=== PATIENT | male | born 1940 | race Caucasian/White ===

== ENCOUNTER 2021-12-27 01:27 | Outpatient (CLI) | payer MEDICARE, SELFPAY | END 2021-12-27 01:28 | disposition home or self-care (01) | LOC: AMB 01-07 11:17 | PROVIDERS: PCP Family Medicine; Visit Provider Family Medicine | DX: E11.649 Type 2 diabetes mellitus with hypoglycemia without coma (principal); R41.82 Altered mental status, unspecified | CPT/HCPCS: A0998 ==

== ENCOUNTER 2022-01-05 14:12 | Outpatient (CLI) | payer MEDICARE, SELFPAY | END 2022-01-05 14:13 | disposition home or self-care (01) | LOC: AMB 01-30 10:44 | PROVIDERS: PCP Family Medicine; Visit Provider Family Medicine | DX: M25.562 Pain in left knee (principal) | CPT/HCPCS: A0425; A0427 ==

== ENCOUNTER 2022-01-05 15:01 | Emergency (ER) | payer MEDICARE, SELFPAY ==
[2022-01-05 15:06] VITALS: BP 149/82; PULSE 63; RESP 18; TEMP 36.4; O2SAT 98; BMI 38.0
--- NOTE | 2022-01-05 15:24 | ED_ITS ---
HPI - General Adult General Chief complaint: Extremity Pain/Injury, Lower Stated complaint: knee pain Time Seen by Provider: 01/05/22 15:10 History of Present Illness HPI narrative: Dontrell is an 81yo male patient who presents via EMS with complaints of severe left knee pain. The patient was recently evaluated and treated by Dr Hwang for similar complaint and offered a steroid injection with notes stating patient is a poor surgical risk. The patient has known history of poorly controlled diabetes (with poor understanding of insulin use) which has resulted in EMS visits for hypoglycemia. In addition, the patient has known history of COPD, HTN, CKD, and CAD. The patient states he has had no acute injury or trauma, but the pain is so severe, he'd 'rather than live with it'. The patient reports the pain is worse when flexing the knee, weight-bearing, or sitting at rest with the knee flexed. He reports minimal to no discomfort while lying supine with knee extended. The patient states he has had no explanation of alternatives of care to surgery. He does not understand why he is a poor surgical risk, and states he will be unable to live with this pain for the rest of his life. He states he is unable to ambulate without assistance. He requested admission for surgical evaluation of his chronic knee pain. Prior to arrival, he has taken no additional [id number] medications for pain control. Related Data Home Medications Medication Instructions Recorded Confirmed aspirin 81 mg tablet,delayed 81 mg PO QDAY 12/21/21 12/25/21 release chlorthalidone 25 mg tablet 25 mg PO QDAY 12/21/21 12/25/21 cholecalciferol (vitamin D3) 25 25 mcg PO QDAY 12/21/21 12/25/21 mcg (1,000 unit) capsule (Vitamin D3) gabapentin 300 mg capsule 300 mg PO 12/21/21 12/25/21 insulin lispro protamine-lispro 20 unit subcut QDAY 12/21/21 12/25/21 100 unit/mL (50-50) subcutaneous pen lisinopril 40 mg tablet 40 mg PO QDAY 12/21/21 12/25/21 metoprolol succinate 25 mg tab PO 12/21/21 12/25/21 tablet,extended release 24 hr rosuvastatin 40 mg tablet 40 mg PO QDAY 12/21/21 12/25/21 tamsulosin 0.4 mg capsule cap PO 12/21/21 12/25/21 insulin aspart U-100 100 unit/mL 1 sliding scale dose subcut 12/25/21 12/25/21 subcutaneous solution (Novolog USEASDIRECTD U-100 Insulin aspart) Previous Rx's Medication Instructions Recorded tramadol 100 mg tablet 100 mg PO TID PRN pain #12 tabs 01/05/22 Allergies Allergy/AdvReac Type Severity Reaction Status Date / Time nifedipine AdvReac feet Verified 12/25/21 08:34 swelling calcium channel blockers AdvReac feet Uncoded 12/25/21 08:34 swelling Review of Systems Const: Denies: fever, chills, fatigue or malaise Eyes: Denies: change in vision or blurry vision ENMT: Denies: throat pain or ear pain Cardio: Denies: chest pain, palpitations or shortness of breath with exertion Resp: Denies: shortness of breath, cough, wheezing or pain on inspiration GI: Denies: abdominal pain, nausea, vomiting, diarrhea or constipation : Denies: painful urination, urinary frequency or urinary urgency Musculo: Reports: extremity pain, extremity swelling, joint pain and limited range of motion; Denies: back pain Integ/Breast: Denies: rash Neuro: Denies: headache, numbness in extremities, weakness in extremities or dizziness Psych: Reports: anxiety (regarding health); Denies: mood swings Endo: Denies: fatigue Allergy/Immuno: Denies: wheezing PFSH PFSH Medical History BPH (benign prostatic hyperplasia) Colon polyp Impairment of balance Right rotator cuff tear Stroke Surgical History History of arthroscopy of right knee (02/17/01) History of lumbar laminectomy S/P medial meniscectomy of right knee (01/27/07) S/P TURP (status post transurethral resection of prostate) Family History Mother Heart problem Hyperlipidemia Father Heart problem Other Diabetes Social History Smoking Status: Former smoker How often do you have a drink containing alcohol: never AUDIT-C Alcohol total score: 0 Non-prescribed substance use: denies use Exam Const: Vital Signs, click to edit/add: Vital Signs - 24 hr 01/05/22 15:06 Temperature 97.6 F Pulse Rate [Right Pulse Oximeter] 63 Respiratory Rate 18 Blood Pressure [Ri ght Upper Arm] 149/82 H Pulse Oximetry 98 Oxygen Delivery Me thod Room Air Documenting provider has reviewed patient's vital signs: yes Common normals: no apparent distress, oriented x3, no limitations, alert and well nourished General appearance: cooperative, comfortable and well developed; not in distress Nutritional appearance: obese morbidly obese Orientation/consciousness: Yes awake, Yes oriented to person and Yes oriented to place HENMT: Common normals: normocephalic, head/scalp atraumatic and hearing grossly normal bilaterally Head and scalp: normocephalic and atraumatic Face and sinus: normal facial exam (within limits of masking) Eye: Common normals: EOMs intact bilaterally General eye: normal appearance of both eyes Resp: Common normals: normal respiratory effort, no retractions, no use of accessory muscles and clear to auscultation bilaterally Effort & inspection: able to speak in complete sentences Auscultation: clear to auscultation bilaterally Cardio: Common normals: regular rate, regular rhythm, S1 normal heart sound and S2 normal heart sound Rate: regular rate Rhythm: regular rhythm Heart sounds: S1 normal and S2 normal Extremity: General: normal exam except as noted and edema (LLE/knee; but no induration, warmth, or erythema; NT to palpation) Neuro: Common normals: oriented x3, moves all extremities (with pain noted in flexion of LLE), no focal motor deficits and no sensory deficits noted Se nsorium/orientation: awake, alert, oriented to person and oriented to place Gait (neuro): assistive device used walker Motor exam: no movement abnormalities noted Psych: Common normals: mental status grossly normal, thought process normal and activity/motor behavior normal Appearance: grossly normal Thought process: normal thought process Thought content: normal thought content Attention/concentration: attention grossly intact Memory/cognition: memory grossly intact Insight: limited Judgement: fair Skin: Common normals: no rashes or lesions noted General skin exam: no rashes or lesions noted Course Course Hospital Course: Dontrell presented for evaluation of chronic left knee pain that has been evaluated and treated by his primary orthopedic physician. Records were reviewed. He requested admission to hospital for consideration of potential surgical evaluation and treatment for his chronic pain. He requests MRI on Friday evening, stating we are unable to confirm 'if there is a tear in the knee'. He denies acute injury or trauma, but he states he is unable to live with the pain. Reevaluation(s) Reevaluation #1: Patient is advised of normal, for patient, lab values. Without acute injury or trauma, repeating the XR would not be beneficial or cost effective for the patient. The patient is advised we are not able to confirm soft tissue complaint in the knee without MRI, but we are unable to perform that function due to access on this day/at this time. The patient is advised, typically for chronic conditions, MRIs are ordered through the outpatient physician after a preauthorization with the insurance company. The patient becomes somewhat defensive stating that this will take weeks to months, and he will be unable to survive this level of pain. Alternatives for pain management are discussed with the patient. After which, he becomes more agreeable and is willing to consider conservative therapy with outpatient follow-up. Orders for medication and knee brace are placed. The patient has multiple walkers at home for his use. Time: 17:00 Reevaluation #2: Patient reports improvement in symptoms. Patient's vital signs have remained stable. The results were discussed, and the patient verbalized understanding. Importance of follow-up for chronic conditions with primary physician discussed. Advised to discuss risk-benefit of surgical correct with orthopedics. Reasons f or follow-up or return to ED were discussed. Time: 17:48 Vital Signs Vital signs: Initial Vital Signs Temperature 97.6 F 01/05/22 15:06 Temperature Source Temporal Artery Scan 01/05/22 15:06 Pulse Rate 63 01/05/22 15:06 Respiratory Rate 18 01/05/22 15:06 Blood Pressure 149/82 H 01/05/22 15:06 Blood Pressure Mean 104 01/05/22 15:06 Blood Pressure Position Sitting 01/05/22 15:06 Pulse Oximetry 98 01/05/22 15:06 Oxygen Delivery Method 01/05/22 15:06 Vital Signs Temperature 97.6 F 01/05/22 15:06 Pulse Rate 63 01/05/22 15:06 Respiratory Rate 18 01/05/22 15:06 Blood Pressure 149/82 H 01/05/22 15:06 Pulse Oximetry 98 01/05/22 15:06 Oxygen Delivery Method 01/05/22 15:06 Temperature 97.6 F 01/05/22 15:06 Pulse Rate 63 01/05/22 15:06 Respiratory Rate 18 01/05/22 15:06 Blood Pressure 149/82 H 01/05/22 15:06 Pulse Oximetry 98 01/05/22 15:06 Oxygen Delivery Method 01/05/22 15:06 Medical Decision Making MDM Narrative Medical decision making narrative: Differential diagnoses considered include: sprain and strain, contusion, nerve root entrapment, radiculopathy, muscle spasm, dislocation, and fracture. Other differentials include ligament or tendon injury/damage, vascular or nerve damage. Lab Data Labs: Lab Results 01/05/22 01/05/22 01/05/22 Range/Units 15:49 15:49 15:49 WBC 8.62 (4.50-11.00) K/uL RBC 4.36 (4.30-5.90) m/uL Hgb 13.4 L (13.5-17.5) gm/dL Hct 41.2 (37.0-53.0) % MCV 95 (80-100) fL MCH 31 (26-34) pg MCHC 33 (32-36) gm/dL RDW Coeff of Sage 12.5 (11.5-15.5) % Plt Count 172 (140-440) K/uL Neut % (Auto) 73.9 H (42.0-72.0) % Lymph % (Auto) 15.7 L (20-44) % [place] % (Auto) 8.2 (0.0-11.0) % Eos % (Auto) 1.5 (0.0-7.0) % Baso % (Auto) 0.5 (0.0-3.0) % Neut # (Auto) 6.40 (1.7-7.0) K/uL Lymph # (Auto) 1.40 (0.90-2.90) K/uL [place] # (Auto) 0.70 (0.00-0.90) K/UL Eos # (Auto) 0.13 (0.00-0.50) K/uL Baso # (Auto) 0.04 (0.00-0.30) K/uL Abs Immat Gran (auto) 0.02 (0.00-0.30) K/uL ESR 32 H (2-15) mm/hr Sodium 136 (135-149) mmol/L Potassium 4.0 (3.6-5.1) mmol/L Chloride 102 (96-114) mmol/L Carbon Dioxide 23 (20-32) mmol/L BUN 40 H (7-30) mg/dL Creatinine 2.2 H (0.5-1.5) mg/dL Estimated Creat Clear 29.26 Estimated GFR 29 ml/min Glucose 254 H (60-115) mg/dL Calcium 8.7 (8.4-10.6) mg/dL Total Bilirubin 0.5 (0.1-1.5) mg/dL AST 35 (12-35) U/L ALT 26 (4-50) U/L Alkaline Phosphatase 130 (40-150) U/L Total Protein 6.5 (6.0-8.3) g/dL Albumin 3.6 (3.3-5.0) g/dL Discharge Plan Discharge Clinical Impression: Morbid obesity, Chronic kidney disease Diabetes Qualifiers: Diabetes mellitus type: type 2 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 use Diabetes mellitus complication status: with kidney complications Diabetes mellitus complication detail: with chronic kidney disease Chronic kidney disease stage: stage 3 (moderate) Chronic kidney disease stage 3 subtype: stage 3b (GFR 30-44) Qualified Code(s): 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 Take NSAIDs (Ibuprofen, Motrin, Advil, or substitute) 600-800mg three times daily for the next three days. Decrease to twice daily for the next two days. Take NSAIDs once daily for 1wk. Take pain medication as prescribed. Your medications will not be refilled in the ED. If you need additional medications, you will need to follow- up with your primary physician for a risk-benefit discussion of long-term pain medication use. Use RICE - rest, ice, compression, and elevation - as needed for symptom control. I recommend following up with your primary physician in 1-2wks if a significant improvement of symptoms is not noted. Continue routine activity as tolerated. Use walker or assistive device to help with ambulation. You may consider topical medications including capsaicin or lidocaine patches to assist with symptom control. If new or worsening symptoms develop or you have any concerns in the meantime, please call your primary care clinic or return to the ER for re-evaluation. Activity Level: Activity as Tolerated Discharge Diet: Diabetic Prescriptions: New tramadol 100 mg tablet 100 mg PO TID PRN (Reason: pain) Qty: 12 0RF No Action insulin lispro protamin-lispro 100 unit/mL (50-50) insulin pen 20 unit subcut QDAY rosuvastatin 40 mg tablet 40 mg PO QDAY lisinopril 40 mg tablet 40 mg PO QDAY gabapentin 300 mg capsule 300 mg PO chlorthalidone 25 mg tablet 25 mg PO QDAY tamsulosin 0.4 mg capsule PO metoprolol succinate 25 mg tablet extended release 24 hr PO aspirin 81 mg tablet,delayed release (DR/EC) 81 mg PO QDAY cholecalciferol (vitamin D3) [Vitamin D3] 25 mcg (1,000 unit) capsule 25 mcg PO QDAY insulin aspart U-100 [Novolog U-100 Insulin aspart] 100 unit/mL solution 1 sliding scale dose subcut USEASDIRECTD Follow Up/Referrals: Bridger Danielson MD [Primary Care Provider] - 7 Days Stand Alone Forms: Relatient Info Instructions
[2022-01-05 15:57] LABS: Basophils Absolute Auto 0.04 K/uL (0.00-0.30); Basophils Percent Auto 0.5 % (0.0-3.0); Eosinophils Absolute Auto 0.13 K/uL (0.00-0.50); Eosinophils Percent Auto 1.5 % (0.0-7.0); Hematocrit 41.2 % (37.0-53.0); Hemoglobin* 13.4 gm/dL (13.5-17.5); Immature Granulocytes Abs Auto 0.02 K/uL (0.00-0.30); Lymphocytes Percent Auto 15.7 % (20-44); Mean Corpuscular HGB Conc 33 gm/dL (32-36); Mean Corpuscular Hemoglobin 31 pg (26-34); Mean Corpuscular Volume 95 fL (80-100); Monocytes Percent Auto 8.2 % (0.0-11.0); Neutrophils Percent Auto 73.9 % (42.0-72.0); Platelet Count* 172 K/uL (140-440); RDW Coefficient of Variation % 12.5 % (11.5-15.5); Red Blood Count 4.36 m/uL (4.30-5.90); White Blood Count* 8.62 K/uL (4.50-11.00)
[2022-01-05 16:00] VITALS: BP 118/74; PULSE 61; O2SAT 91
[2022-01-05 16:01] LABS: Slide Review Reflex No
[2022-01-05 16:18] LABS: Chloride* 102 mmol/L (96-114)
[2022-01-05 16:19] LABS: Albumin* 3.6 g/dL (3.3-5.0); Sodium* 136 mmol/L (135-149)
[2022-01-05 16:21] LABS: Creatinine* 2.2 mg/dL (0.5-1.5); Est. Creatinine Clearance* 29.26; Estimated Glomerular Filt Rate 29 ml/min
[2022-01-05 16:22] LABS: Alanine Aminotransferase* 26 U/L (4-50); Alkaline Phosphatase* 130 U/L (40-150); Aspartate Amino Transferase* 35 U/L (12-35); Bilirubin Total* 0.5 mg/dL (0.1-1.5); Blood Urea Nitrogen* 40 mg/dL (7-30); Carbon Dioxide* 23 mmol/L (20-32); Glucose* 254 mg/dL (60-115); Total Protein* 6.5 g/dL (6.0-8.3)
[2022-01-05 16:23] LABS: Calcium* 8.7 mg/dL (8.4-10.6)
[2022-01-05 16:50] LABS: Erythrocyte SedimentationRate* 32 mm/hr (2-15)
[2022-01-05 17:00] VITALS: BP 133/54; PULSE 56; O2SAT 94
[2022-01-05] MEDS: TRAMADOL HCL 50 MG TABLET 100 MG PO (17:43)
== END 2022-01-05 18:47 | disposition home or self-care (01) ==
PROVIDERS: Emergency Provider Family Medicine; PCP Family Medicine
DX: M17.12 Unilateral primary osteoarthritis, left knee (principal); E11.22 Type 2 diabetes mellitus with diabetic chronic kidney disease; E66.01 Morbid (severe) obesity due to excess calories
CPT/HCPCS: 36415; 80053; 85025; 85651; 99283; 99284; A9270

== ENCOUNTER 2022-01-07 13:24 | Outpatient (CLI) | payer MEDICARE, SELFPAY | END 2022-01-07 13:25 | disposition home or self-care (01) | LOC: AMB 01-10 00:02 | PROVIDERS: PCP Family Medicine; Visit Provider Emergency Medicine Emergency Medical Services | DX: F91.9 Conduct disorder, unspecified (principal) | CPT/HCPCS: A0425; A0427 ==

== ENCOUNTER 2022-01-07 13:49 | Observation (INO) | payer MEDICARE, SELFPAY ==
[2022-01-07] VITALS (9 sets, daily range): BP systolic 99–147; BP diastolic 61–87; PULSE 78–104; RESP 16–20; TEMP 35.7–36.8; O2SAT 94; BMI 37.6; BMI 39.9
--- NOTE | 2022-01-07 14:11 | CRLHL7_ITS ---
For Patients: As a result of the Century Cures Act, medical imaging exams and procedure reports are released immediately into your electronic medical record. You may view this report before your referring provider. If you have questions, please contact your health care provider. INDICATION: abdominal pain, rebound tenderness TECHNIQUE: CT abdomen and pelvis without contrast, COMPARISON: None. FINDINGS: Kidney/ureters: Severe bilateral renal cortical atrophy. No kidney or ureteral stones and no hydronephrosis. No hydronephrosis. Unremarkable appearing bladder. Liver/gallbladder/bile ducts: The liver is normal in size, shape and attenuation. Gallbladder is normal without visualized stones or inflammation. No biliary dilatation. Spleen/pancreas/adrenal glands: The adrenal glands and pancreas are within normal limits. Calcified granulomata within the spleen. GI tract: Small hiatal hernia. 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 Colon diverticulosis without evidence of acute diverticulitis. Moderate fecal retention throughout the colon and rectum.. Normal appendix. Abdominal wall/omentum/peritoneum: No free air or significant free fluid. No mass or inflammation. Lymph nodes: No lymphadenopathy. Pelvis: Prostatomegaly measuring 5.1 x 6.6 cm. Lower chest: Bibasilar subpleural reticulation which may indicate fibrosis. Right basilar calcified granuloma. Bone: Calcified disc osteophyte complex at L5-S1 with moderate spinal canal stenosis. IMPRESSION: No evidence of acute intra-abdominal process. Small hiatal hernia. 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 Colon diverticulosis without evidence of acute diverticulitis. Prostatomegaly. Bibasilar subpleural reticulation which may indicate fibrosis. Calcified disc osteophyte complex at L5-S1 with moderate spinal canal stenosis. Please note that all CT scans at this facility use dose modulation, iterative reconstruction, and/or weight-based dosing when appropriate to reduce radiation dose to as low as reasonably achievable. Dictated by Damian Graham MD @ 01/07/2022 4:25:07 PM (Electronically Signed)
--- NOTE | 2022-01-07 14:11 | CRLHL7_ITS ---
For Patients: As a result of the Century Cures Act, medical imaging exams and procedure reports are released immediately into your electronic medical record. You may view this report before your referring provider. If you have questions, please contact your health care provider. Indication: Injury and pain Technique: Right wrist 3 view Comparison: None Findings: The bones are osteopenic. There is mildly displaced fracture involving the distal radial metaphysis with dorsal angulation. Mildly displaced fracture of the ulnar styloid. There is adjacent soft tissue swelling. Impression: Fractures involving the distal radial metaphysis and ulnar styloid. Dictated by Damian Graham MD @ 01/07/2022 2:50:09 PM (Electronically Signed)
--- NOTE | 2022-01-07 14:13 | ED.GENADULT ---
HPI - General Adult General Chief complaint: Unspecified Complaint, Adult Stated complaint: Knee pain Time Seen by Provider: 01/07/22 13:58 History of Present Illness HPI narrative: This 81-year-old male comes in by ambulance because of inability to ambulate. He has had chronic knee pain that is been worsening significantly recently. He did have x-rays of his knees about 2 weeks ago which showed degenerative disease. He did not fall or injure his knees to bring about this pain. He was seen 2 days ago in the emergency department for knee pain and was sent home with a knee immobilizer. He arrived at home and fell when using his walker. He injured his right wrist and hit his head when he fell. He does not report a headache. He is not on any blood thinners. He does have bruising and swelling of his right wrist and decreased function. For the past 2 days he has been unable to get up to ambulate because these problems. He has been using a urinal and has depends on currently. He does report abdominal pain. Related Data Home Medications Medication Instructions Recorded Confirmed aspirin 81 mg tablet,delayed 81 mg PO DAILY 12/21/21 01/07/22 release chlorthalidone 25 mg tablet 25 mg PO DAILY 12/21/21 01/07/22 cholecalciferol (vitamin D3) 25 50 mcg PO DAILY 12/21/21 01/07/22 mcg (1,000 unit) capsule (Vitamin D3) gabapentin 300 mg capsule 300 mg PO HS 12/21/21 01/07/22 insulin lispro protamine-lispro 40 unit subcut BID 12/21/21 01/07/22 100 unit/mL (50-50) subcutaneous pen lisinopril 40 mg tablet 40 mg PO DAILY 12/21/21 01/07/22 metoprolol succinate 25 mg 25 mg PO DAILY 12/21/21 01/07/22 tablet,extended release 24 hr rosuvastatin 40 mg tablet 40 mg PO HS 12/21/21 01/07/22 tamsulosin 0.4 mg capsule 0.4 mg PO DAILY 12/21/21 01/07/22 insulin aspart U-100 100 unit/mL 20 unit subcut TIDWM 12/25/21 01/07/22 subcutaneous solution (Novolog U-100 Insulin aspart) acetaminophen 500 mg tablet 1,000 mg PO TID 01/07/22 01/07/22 Allergies Allergy/AdvReac Type Severity Reaction Status Date / Time nifedipine AdvReac feet Verified 12/25/21 08:34 swelling calcium channel blockers AdvReac feet Uncoded 12/25/21 08:34 swelling Review of Systems Status of ROS: Reports: 10 or more systems reviewed and unremarkable except as noted in History and below Narrative: Constitutional: No fevers, no weight gain or loss. Eyes: No discharge. No vision changes. HENT: No congestion, no sore throat, no ear pain. Cardiovascular: No chest pain, no palpitations. Respiratory: No shortness of breath, no wheezes, no cough. Gastrointestinal: No vomiting, no diarrhea. Diffuse abdominal pain. Genitourinary: No dysuria, no hematuria. Musculoskeletal: Bilateral knee pain. Right wrist injury with swelling and bruising. Skin: No rashes, no pruritis. Neurological: No dizziness, weakness, sensory change, speech change. Endo/Heme/Allergies: No bruising or bleeding. No polydipsia. Pysch: no suicidality, no anxiety, no insomnia. All other systems reviewed and are negative. [facility] Medical History BPH (benign prostatic hyperplasia) Colon polyp Impairment of balance Right rotator cuff tear Stroke Surgical History History of arthroscopy of right knee (02/17/01) History of lumbar laminectomy S/P medial meniscectomy of right knee (01/27/07) S/P TURP (status post transurethral resection of prostate) Family History Mother Heart problem Hyperlipidemia Father Heart problem Other Diabetes Social History Smoking Status: Former smoker How often do you have a drink containing alcohol: never AUDIT-C Alcohol total score: 0 Non-prescribed substance use: denies use service: No Exam Narrative: Exam Narrative: Constitutional: Well-developed, well-nourished, no acute distress. HEENT: Normocephalic, atraumatic. Neck: Normal range of motion. Nontender. Supple. Heart: Regular. No murmurs. Normal rate. Intact distal pulses. Lungs: Clear to auscultation. No chest discomfort. No wheezes, rhonchi, or rales. Abdomen: Normal bowel sounds. Diffuse tenderness with rebound tenderness. Genitalia: Deferred. Back: No midline tenderness. Normal range of motion. Extremities: Right wrist has swelling and bruising with decreased function and range of motion. Skin: Intact. No rash. Warm. No erythema or pallor. Neurologic: No altered sensation. No weakness. Alert and oriented. Psychiatric: No suicidality. No anxiety or depression. No insomnia. Nursing notes and vitals signs are reviewed. Const: Vital Signs, click to edit/add: Vital Signs - 24 hr 01/07/22 13:52 01/07/22 15:15 01/07/22 14:02 Temperature 96.2 F L Pulse Rate [Left P ulse Oximeter] 99 96 104 H Respiratory Rate 16 16 20 Blood Pressure [Le ft Upper Arm] 99/68 142/78 H Pulse Oximetry 94 94 94 Oxygen Delivery Me thod Room Air Room Air Room Air Course Vital Signs Vital signs: Initial Vital Signs Temperature 96.2 F L 01/07/22 13:52 Temperature Source Temporal Artery Scan 01/07/22 13:52 Pulse Rate 99 01/07/22 13:52 Pulse Rhythm 01/07/22 13:52 Pulse Strength 3+ Normal 01/07/22 13:52 Respiratory Rate 16 01/07/22 13:52 Blood Pressure Position Supine 01/07/22 13:52 Pulse Oximetry 94 01/07/22 13:52 Oxygen Delivery Method 01/07/22 13:52 Vital Signs Temperature 96.2 F L 01/07/22 13:52 Pulse Rate 99 01/07/22 13:52 Respiratory Rate 16 01/07/22 13:52 Pulse Oximetry 94 01/07/22 13:52 Oxygen Delivery Method 01/07/22 13:52 Temperature 96.2 F L 01/07/22 13:52 Pulse Rate 96 01/07/22 15:15 Respiratory Rate 16 01/07/22 15:15 Blood Pressure 99/68 01/07/22 15:15 Pulse Oximetry 94 01/07/22 15:15 Oxygen Delivery Method 01/07/22 15:15 Medical Decision Making MDM Narrative Medical decision making narrative: This patient was sent home after an ER visit a couple days ago. He had no injury at the time but was complaining of severe knee pain. He has had a visit with orthopedic clinic and images were done a couple weeks ago of his knees. He was sent home 2 days ago with a knee immobilizer. When ambulating within immobilizer on and with the use of a walker he lost his balance and fell backwards. He injured his right wrist and states that he did bump his head. He is also complaining of abdominal pain. A CT scan of the abdomen without contrast was done which shows no acute findings to explain his pain. X-ray of the right wrist does show a minimally displaced fracture. The patient was placed in an ortho glass volar splint. I spoke with the hospitalist director selection and administration, Dr. Kinney, who agreed to his admission overnight. He requested a CT scan of his head and C-spine which was ordered and can be completed EN route to the hospital bed. Lab Data Labs: Lab Results 01/07/22 01/07/22 01/07/22 Range/Units 15:10 15:10 15:10 WBC 11.19 H (4.50-11.00) K/uL RBC 4.64 (4.30-5.90) m/uL Hgb 14.4 (13.5-17.5) gm/dL Hct 43.2 (37.0-53.0) % MCV 93 (80-100) fL MCH 31 (26-34) pg MCHC 33 (32-36) gm/dL RDW Coeff of Sage 12.4 (11.5-15.5) % Plt Count 185 (140-440) K/uL Neut % (Auto) 80.6 H (42.0-72.0) % Lymph % (Auto) 9.7 L (20-44) % [place] % (Auto) 8.3 (0.0-11.0) % Eos % (Auto) 0.8 (0.0-7.0) % Baso % (Auto) 0.4 (0.0-3.0) % Neut # (Auto) 9.00 H (1.7-7.0) K/uL Lymph # (Auto) 1.10 (0.90-2.90) K/uL [place] # (Auto) 0.90 (0.00-0.90) K/UL Eos # (Auto) 0.10 (0.00-0.50) K/uL Baso # (Auto) 0.00 (0.00-0.30) K/uL Abs Immat Gran (auto) 0.02 (0.00-0.30) K/uL Sodium 135 (135-149) mmol/L Potassium 4.4 (3.6-5.1) mmol/L Chloride 98 (96-114) mmol/L Carbon Dioxide 25 (20-32) mmol/L BUN 47 H (7-30) mg/dL Creatinine 2.5 H (0.5-1.5) mg/dL Estimated Creat Clear 25.75 Estimated GFR 25 ml/min Glucose 202 H (60-115) mg/dL Calcium 9.7 (8.4-10.6) mg/dL SARS-CoV-2 (PCR) Negative SARS-CoV-2 (Negative) Imaging Data xr R Wrist: Radiologist's impression: The bones are osteopenic. There is mildly displaced fracture involving the distal radial metaphysis with dorsal angulation. Mildly displaced fracture of the ulnar styloid. There is adjacent soft tissue swelling. CT scan - abdomen: Radiologist's impression: No evidence of acute intra-abdominal process. Small hiatal hernia. 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 Colon diverticulosis without evidence of acute diverticulitis. Prostatomegaly. Bibasilar subpleural reticulation which may indicate fibrosis. Calcified disc osteophyte complex at L5-S1 with moderate spinal canal stenosis. Discharge Plan Discharge Clinical Impression: Right wrist fracture, Osteoarthritis of knees, bilateral Patient Disposition: Admitted As Inpatient Prescriptions: No Action insulin lispro protamin-lispro 100 unit/mL (50-50) insulin pen 40 unit subcut BID rosuvastatin 40 mg tablet 40 mg PO HS lisinopril 40 mg tablet 40 mg PO DAILY gabapentin 300 mg capsule 300 mg PO HS chlorthalidone 25 mg tablet 25 mg PO DAILY tamsulosin 0.4 mg capsule 0.4 mg PO DAILY metoprolol succinate 25 mg tablet extended release 24 hr 25 mg PO DAILY aspirin 81 mg tablet,delayed release (DR/EC) 81 mg PO DAILY cholecalciferol (vitamin D3) [Vitamin D3] 25 mcg (1,000 unit) capsule 50 mcg PO DAILY insulin aspart U-100 [Novolog U-100 Insulin aspart] 100 unit/mL solution 20 unit subcut TIDWM acetaminophen 500 mg tablet 1,000 mg PO TID Follow Up/Referrals: Bridger Danielson MD [Primary Care Provider] -
[2022-01-07 15:27] LABS: Basophils Percent Auto 0.4 % (0.0-3.0); Eosinophils Percent Auto 0.8 % (0.0-7.0); Hematocrit 43.2 % (37.0-53.0); Hemoglobin* 14.4 gm/dL (13.5-17.5); Immature Granulocytes Abs Auto 0.02 K/uL (0.00-0.30); Lymphocytes Percent Auto 9.7 % (20-44); Mean Corpuscular HGB Conc 33 gm/dL (32-36); Mean Corpuscular Hemoglobin 31 pg (26-34); Mean Corpuscular Volume 93 fL (80-100); Monocytes Percent Auto 8.3 % (0.0-11.0); Neutrophils Percent Auto 80.6 % (42.0-72.0); Platelet Count* 185 K/uL (140-440); RDW Coefficient of Variation % 12.4 % (11.5-15.5); Red Blood Count 4.64 m/uL (4.30-5.90); White Blood Count* 11.19 K/uL (4.50-11.00)
[2022-01-07 15:31] LABS: Slide Review Reflex No
[2022-01-07 15:41] LABS: Chloride* 98 mmol/L (96-114); Potassium* 4.4 mmol/L (3.6-5.1); Sodium* 135 mmol/L (135-149)
[2022-01-07 15:43] LABS: Creatinine* 2.5 mg/dL (0.5-1.5); Est. Creatinine Clearance* 25.75; Estimated Glomerular Filt Rate 25 ml/min
[2022-01-07 15:44] LABS: Blood Urea Nitrogen* 47 mg/dL (7-30); Calcium* 9.7 mg/dL (8.4-10.6); Carbon Dioxide* 25 mmol/L (20-32); Glucose* 202 mg/dL (60-115)
--- NOTE | 2022-01-07 17:00 | CRLHL7_ITS ---
For Patients: As a result of the Century Cures Act, medical imaging exams and procedure reports are released immediately into your electronic medical record. You may view this report before your referring provider. If you have questions, please contact your health care provider. INDICATION: Fall. TECHNIQUE: CT of the head without contrast. Coronal and sagittal reformats are included. COMPARISON: None. FINDINGS: No acute intracranial hemorrhage. No mass effect or midline shift. No hydrocephalus or extra-axial collections. Scattered white matter hypoattenuation, typical for chronic microvascular ischemic change. Moderate generalized parenchymal volume loss. No acute osseous abnormalities. Mastoid air cells and paranasal sinuses are clear. Normal soft tissues. IMPRESSION: IMPRESSION: 1. No acute intracranial abnormalities. Please note that all CT scans at this facility use dose modulation, iterative reconstruction, and/or weight-based dosing when appropriate to reduce radiation dose to as low as reasonably achievable. Dictated by Markel Ferguson MD @ 01/07/2022 5:50:53 PM (Electronically Signed)
--- NOTE | 2022-01-07 17:00 | CRLHL7_ITS ---
For Patients: As a result of the Cures Act, medical imaging exams and procedure reports are released immediately into your electronic medical record. You may view this report before your referring provider. If you have questions, please contact your health care provider. INDICATION: Fall. TECHNIQUE: CT of the cervical spine without contrast. Coronal and sagittal reformats are included. COMPARISON: None. FINDINGS: No acute fracture or traumatic malalignment of the cervical spine. Craniocervical junction alignment is maintained. Mild degenerative cervical kyphosis. Mild to moderate disc degeneration most prominent at C5-6, C6-7 and C7-T1. Mild anterolisthesis at C3-4 and C4-5. Multilevel uncovertebral/facet arthrosis with mild to moderate bony neural foraminal stenosis at several levels. No high grade spinal canal stenosis as far as visualized. Imaged intracranial structures, cervical and paraspinous soft tissues are normal in appearance. The visualized pulmonary apices are clear. IMPRESSION: 1. No acute fracture or traumatic malalignment of the cervical spine. Please note that all CT scans at this facility use dose modulation, iterative reconstruction, and/or weight-based dosing when appropriate to reduce radiation dose to as low as reasonably achievable. Dictated by Markel Ferguson MD @ 01/07/2022 5:48:30 PM (Electronically Signed)
[2022-01-07 17:06] LABS: SARS PCR* Negative SARS-CoV-2 (Negative)
--- NOTE | 2022-01-07 17:59 | PM.IMHP1 ---
Hospitalist- H&P: HPI History of Present Illness Date Seen: 01/07/22 Chief complaint: Knee pain Narrative: Dontrell Ramirez is a 81 year old male who has progressive nontraumatic pain in his left knee. Pt has been seen by orthopedics and underwent a steroid injection. Pt was seen in the [facility] ED 2 days ago stating that his knee was so painful that he wanted to be admitted. Pt was treated with a knee imobilizer and toradol. Pt was discharged home and was getting around with the knee imobilizer and a walker when he fell and injured his right wrist and posterior aspect of his head. CT of the head and neck showed no acute abnormalities and x ray of the right wrist showed a fracture of the radial metaphysis and ulnar styloid. The wrist was spinted. Pt's CBC remains unremarkable. He does have a blood sugar of 202 and slight worsening of his chronic renal insufficiency with BUN of 47 and Cr 2.5. Pt otherwise feels well and has no other complaints. No palpatations or other cardiovascular symptoms. Review of Systems Status of ROS: Reports: 10 or more systems reviewed and unremarkable except as noted in History and below [facility] Medical History (Updated 01/07/22 @ 18:20 by Leonel Kinney MD) BPH (benign prostatic hyperplasia) Chronic renal insufficiency Colon polyp COPD (chronic obstructive pulmonary disease) Diabetes Hyperlipidemia Hypertension Impairment of balance Neuropathy Osteoarthritis of left knee Right rotator cuff tear Right wrist fracture Sleep apnea Stroke Surgical History History of arthroscopy of right knee (02/17/01) History of lumbar laminectomy S/P medial meniscectomy of right knee (01/27/07) S/P TURP (status post transurethral resection of prostate) Family History Mother Heart problem Hyperlipidemia Father Heart problem Other Diabetes Social History Smoking Status: Former smoker How often do you have a drink containing alcohol: never AUDIT-C Alcohol total score: 0 Non-prescribed substance use: denies use service: No Meds Home Medications and Allergies Home Medications Medication Instructions Recorded Confirmed Type aspirin 81 mg tablet,delayed 81 mg PO DAILY 12/21/21 01/07/22 History release chlorthalidone 25 mg tablet 25 mg PO DAILY 12/21/21 01/07/22 History cholecalciferol (vitamin D3) 25 50 mcg PO DAILY 12/21/21 01/07/22 History mcg (1,000 unit) capsule (Vitamin D3) gabapentin 300 mg capsule 300 mg PO HS 12/21/21 01/07/22 History insulin lispro protamine-lispro 40 unit subcut BID 12/21/21 01/07/22 History 100 unit/mL (50-50) subcutaneous pen lisinopril 40 mg tablet 40 mg PO DAILY 12/21/21 01/07/22 History metoprolol succinate 25 mg 25 mg PO DAILY 12/21/21 01/07/22 History tablet,extended release 24 hr rosuvastatin 40 mg tablet 40 mg PO HS 12/21/21 01/07/22 History tamsulosin 0.4 mg capsule 0.4 mg PO DAILY 12/21/21 01/07/22 History insulin aspart U-100 100 unit/mL 20 unit subcut TIDWM 12/25/21 01/07/22 History subcutaneous solution (Novolog U-100 Insulin aspart) acetaminophen 500 mg tablet 1,000 mg PO TID 01/07/22 01/07/22 History Allergies Allergy/AdvReac Type Severity Reaction Status Date / Time nifedipine AdvReac feet Verified 12/25/21 08:34 swelling calcium channel blockers AdvReac feet Uncoded 12/25/21 08:34 swelling Exam Narrative: Exam Narrative: EXAM GENERAL: Patient appears comfortable and well obese. No signs of head or neck trauma EYES: No scleral icterus. THYROID: no thyroid nodules or thyromegaly. LYMPH: No supraclavicular or cervical lymphadenopathy. SKIN: Visible skin seen during exam normal or with benign process only. EXT: No dependent lower extremity pedal edema. R wrist splinted. HEART: Regular rate and rhythm with no murmurs, rubs, or gallops. LUNGS: Clear to auscultation bilaterally with no crackles or wheezes. ABD: Soft, non tender, non distended. PSYCH: Good eye contact, speech is not pressured. Const: Vital Signs, click to edit/add: Vital Signs - 24 hr 01/07/22 13:52 01/07/22 15:15 01/07/22 14:02 Temperature 96.2 F L Pulse Rate [Left P ulse Oximeter] 99 96 104 H Respiratory Rate 16 16 20 Blood Pressure [Le ft Upper Arm] 99/68 142/78 H Pulse Oximetry 94 94 94 Oxygen Delivery Ia thod Room Air Room Air Room Air 01/07/22 16:00 01/07/22 17:49 Temperature Pulse Rate [Left P ulse Oximeter] Respiratory Rate Blood Pressure [Le ft Upper Arm] 135/68 146/61 H Pulse Oximetry Oxygen Delivery Ia thod Hospitalist - H&P: Result Labs Labs: Short CBC 01/07/22 Range/Units 15:10 WBC 11.19 H (4.50-11.00) K/uL Hgb 14.4 (13.5-17.5) gm/dL Hct 43.2 (37.0-53.0) % Plt Count 185 (140-440) K/uL BMP 01/07/22 15:10 Sodium 135 Potassium 4.4 Chloride 98 Carbon Dioxide 25 BUN 47 H Creatinine 2.5 H Glucose 202 H Calcium 9.7 Assessment and Plan Assessment and plan (1) Right wrist fracture: Status: Acute Assessment and Plan: Wrist is splinted. Spoke with Ortho. Likely will need surgery. No surgeon available until . They will be in contact with primary team and pt. (2) Osteoarthritis of knees, bilateral: Problem comment: Left is greater than right. Left is severe, right is moderate. Status: Chronic Assessment and Plan: Pt unable to ambulate. Will have PT, OT, [employer] address placment given wrist fracture. Ortho to see. (3) Chronic renal insufficiency: Status: Acute Assessment and Plan: Will hold Lisinopril and hydrate with Normal saline overnight. Repeat labs in am. (4) Diabetes: Status: Chronic Assessment and Plan: Will continue outpt regiment with accuchecks. Can initiate SSI if needed. (5) Hyperlipidemia: Status: Chronic Assessment and Plan: Continue Rosuvastatin (6) Sleep apnea: Status: Chronic Assessment and Plan: Oxymetry and monitor. Pt does not use CPAP. (7) Neuropathy: Status: Chronic Assessment and Plan: Continue Gabapentin (8) Hypertension: Status: Chronic Assessment and Plan: Holding lisinopril and continuing Chlorthalidone and Toprol XL Plan Pt wishes to be a full code.
[2022-01-07] MEDS: 0.9 % SODIUM CHLORIDE 1000 ml 1,000 ML 75 ML IV (18:57)
[2022-01-07] MEDS: ACETAMINOPHEN 500 MG TABLET 1000 MG PO (21:04)
[2022-01-07] MEDS: GABAPENTIN 300 MG CAPSULE PO (21:05)
[2022-01-07] MEDS: ROSUVASTATIN CALCIUM 10 MG TABLET 40 MG PO (21:05)
[2022-01-07] MEDS: DOCUSATE SODIUM 100 MG CAPSULE PO (21:05)
[2022-01-07 22:21] LABS: Appearance Urine Clear (Clear); Bilirubin Urine Negative (Negative); Blood Urine Trace-lysed (Negative); Color Urine Yellow (Yellow); Glucose Urine Negative (Negative); Ketones Urine Trace (Negative); Leukocyte Esterase Urine Negative (Negative); Nitrite Urine Negative (Negative); Protein Urine 3+ (Negative); Specific Gravity Urine >= 1.030 (1.000-1.030); Urobilinogen Urine 0.2 (0.2-1.0); pH Urine 5.5 (5.0-8.5)
--- NOTE | 2022-01-07 22:28 | PC.NURSE ---
Shift [id number]- Patient arrives to unit via stretcher from Emergency room and slid over. Left knee is painful to movement, even slight, though he is comfortable at rest. He states abdominal pain is mainly resolved, no pain is present to right wrist, which is roderick wrapped and splinted. He is able to make large movements in bed, mostly independently, though with pain. MD notified for pain management. No new orders. He states he has had experiences with hypoglycemia overnight, requiring hospitalization at times. He manages this by taking carbs and having wake him throughout the night to check blood sugar. See charting for blood glucose assessment and insulin administration. He currently appears restful.
[2022-01-08 03:00] VITALS: BP 140/47; PULSE 74; RESP 16; TEMP 36.8; O2SAT 92
[2022-01-08 06:30] LABS: Basophils Absolute Auto 0.04 K/uL (0.00-0.30); Basophils Percent Auto 0.5 % (0.0-3.0); Eosinophils Absolute Auto 0.19 K/uL (0.00-0.50); Eosinophils Percent Auto 2.2 % (0.0-7.0); Hematocrit 37.8 % (37.0-53.0); Hemoglobin* 12.4 gm/dL (13.5-17.5); Immature Granulocytes Abs Auto 0.01 K/uL (0.00-0.30); Lymphocytes Percent Auto 14.6 % (20-44); Mean Corpuscular HGB Conc 33 gm/dL (32-36); Mean Corpuscular Hemoglobin 31 pg (26-34); Mean Corpuscular Volume 94 fL (80-100); Monocytes Percent Auto 8.5 % (0.0-11.0); Neutrophils Percent Auto 74.1 % (42.0-72.0); Platelet Count* 158 K/uL (140-440); RDW Coefficient of Variation % 12.4 % (11.5-15.5); Red Blood Count 4.01 m/uL (4.30-5.90); White Blood Count* 8.52 K/uL (4.50-11.00)
[2022-01-08 06:50] LABS: Chloride* 101 mmol/L (96-114); Potassium* 3.8 mmol/L (3.6-5.1); Sodium* 134 mmol/L (135-149)
[2022-01-08 06:51] LABS: Slide Review Reflex No
[2022-01-08 06:52] LABS: Creatinine* 2.4 mg/dL (0.5-1.5); Est. Creatinine Clearance* 26.82; Estimated Glomerular Filt Rate 26 ml/min
[2022-01-08 06:53] LABS: Blood Urea Nitrogen* 52 mg/dL (7-30); Calcium* 8.7 mg/dL (8.4-10.6); Carbon Dioxide* 25 mmol/L (20-32); Glucose* 229 mg/dL (60-115)
--- NOTE | 2022-01-08 06:57 | PC.NURSE ---
Alert and oriented x4. Denies pain with no activity. Refused to ambulate overnight. Limited bed mobility due to pain. CMS on right hand intact. no further concerns noted
[2022-01-08 07:00] VITALS: BP 137/59; PULSE 67; RESP 20; TEMP 36.2; O2SAT 97
[2022-01-08] MEDS: 0.9 % SODIUM CHLORIDE 1000 ml 1,000 ML 75 ML IV ×2 (07:57→20:49)
[2022-01-08] MEDS: METOPROLOL SUCCINATE (XL) 25 MG TAB PO (08:26)
[2022-01-08] MEDS: CHLORTHALIDONE 25 MG TABLET PO (08:26)
[2022-01-08] MEDS: ASPIRIN 81 MG TABLET EC PO (08:27)
[2022-01-08] MEDS: TAMSULOSIN HCL 0.4 MG CAPSULE PO (08:27)
[2022-01-08] MEDS: ACETAMINOPHEN 500 MG TABLET 1000 MG PO ×3 (08:27→20:41)
[2022-01-08] MEDS: OXYCODONE 5 MG TABLET PO ×3 (10:46→23:47)
[2022-01-08 11:00] VITALS: BP 121/57; PULSE 70; RESP 16; TEMP 36.6; O2SAT 95
[2022-01-08 15:00] VITALS: BP 128/62; PULSE 71; RESP 20; TEMP 36.7; O2SAT 95
--- NOTE | 2022-01-08 15:18 | PC.SOCIAL ---
Met with pt. and spouse Regina at [phone] to discuss discharge plans. Pt. is requiring a ceiling lift and needs a SNF for therapy. Pt. and spouse want [facility] as their first choice, then [place], [place], and [place]. Traci states she drives only as far as [place]. [facility] beds [facility] accommodate a elena or two person transfer at this time [facility]- Has no openings [place] is full until the middle of next week A message was left and referral sent to the [facility] [place] as they have availability. [facility] also has availability, will discuss that this may be the only option for pt. [employer] will continue to work on discharge planning needs.
--- NOTE | 2022-01-08 15:47 | PM.IMPN1 ---
Progress Note: A&P Assessment and plan (1) Right wrist fracture: Status: Acute Assessment and Plan: I spoke Dr. Hwang who told me that he looked at the images and did not recommend surgery at this time. He would like Dontrell to with him in a week's time with reimaging of the right forearm. If Dontrell is unable to make it to the clinic from the assisted, images could be done at the assisted and sent to Dr. Hwang. I have started low-dose p.r.n. oxycodone for pain control. (2) Osteoarthritis of left knee: Status: Chronic (3) COPD (chronic obstructive pulmonary disease): Status: Chronic (4) Hypertension: Status: Chronic (5) Sleep apnea: Status: Chronic (6) Hyperlipidemia: Status: Chronic (7) Diabetes: Status: Chronic Assessment and Plan: Continue home meds. Add ISS. (8) Chronic kidney disease: Status: Chronic (9) Osteoarthritis of knees, bilateral: Problem details: Left is greater than right. Left is severe, right is moderate. Status: Chronic (10) CAD (coronary artery disease): Status: Chronic Plan Chronic conditions are stable. Will need [facility] facility. Add senna-s and prn miralax for constipation and bowel regimen while using narcotics. Subjective Time Seen by Provider: 12:03 Date Seen: 01/08/22 Interval history: Dontrell and his , Regina, were in the room today. Dontrell told me a detailed history about how he was seen by Dr. Hwang and told that he would need an elective left total knee arthroplasty for [id number]. Recently his knee locked up and he went to the ER on Friday for that. He was given a knee immobilizer and discharged home, but could not get up steps and so had to go around to his sun porch door which was surrounded by loose rocks in the [facility]. His walker got stuck in the rocks and he fell backward. He said that he hit his head on the cement, was seeing stars and felt like he got knocked out, but his says that he had not lost consciousness. Dontrell then did say that he seemed to be awake the entire time, but felt confused. He did not know he hurt his right wrist at the time. They eventually called EMS some firefighters came and helped him get back onto the couch in his house. He notes that he has pretty much been living on this couch for several months because of his knee. Now with the right forearm fracture, he is unable to use that arm to help him get around and he is pretty much bedbound. EXAM General: No acute distress. Awake, alert, oriented x3. No pallor. No jaundice. Obese. Oropharynx: Clear. Mucous membranes moist. Cardiovascular: Regular rate and rhythm. No murmurs, gallops, or rubs. Respiratory: Clear to auscultation bilaterally. No wheezes or crackles. Abdomen: Bowel sounds present. Soft, nondistended, nontender. Extremities: Right forearm is in a splint. Exam Const: Vital Signs, click to edit/add: Vital Signs - 24 hr 01/07/22 16:00 01/07/22 17:49 01/07/22 18:00 Temperature Pulse Rate [Left P ulse Oximeter] Respiratory Rate Blood Pressure [Le ft Arm] Blood Pressure [Le ft Upper Arm] 135/68 146/61 H Blood Pressure [Ri ght Arm] Pulse Oximetry 94 Oxygen Delivery Me thod Room Air 01/07/22 18:20 01/07/22 23:00 01/07/22 23:00 Temperature 98.3 F Pulse Rate [Left P ulse Oximeter] 100 78 Respiratory Rate 16 16 Blood Pressure [Le ft Arm] 137/87 Blood Pressure [Le ft Upper Arm] Blood Pressure [Ri ght Arm] Pulse Oximetry 94 94 Oxygen Delivery Me thod Room Air 01/07/22 23:00 01/08/22 03:00 01/08/22 07:00 Temperature 98.3 F 98.3 F Pulse Rate [Left P ulse Oximeter] 78 74 Respiratory Rate 16 16 Blood Pressure [Le ft Arm] 147/65 H 140/47 H Blood Pressure [Le ft Upper Arm] Blood Pressure [Ri ght Arm] Pulse Oximetry 94 92 97 Oxygen Delivery Me thod Room Air Room Air 01/08/22 07:00 01/08/22 07:00 01/08/22 11:00 Temperature 97.1 F L 98 F Pulse Rate [Left P ulse Oximeter] 67 67 70 Respiratory Rate 20 20 16 Blood Pressure [Le ft Arm] 121/57 L Blood Pressure [Le ft Upper Arm] Blood Pressure [Ri ght Arm] 137/59 L Pulse Oximetry 97 95 Oxygen Delivery Me thod Room Air Room Air 01/08/22 15:00 01/08/22 15:00 01/08/22 15:00 Temperature 98.1 F Pulse Rate [Left P ulse Oximeter] 71 71 Respiratory Rate 20 20 Blood Pressure [Le ft Arm] Blood Pressure [Le ft Upper Arm] Blood Pressure [Ri ght Arm] 128/62 Pulse Oximetry 95 95 Oxygen Delivery Me thod Room Air Labs Labs: Laboratory Results - last 24 hr 01/07/22 01/07/22 01/08/22 15:10 22:00 06:06 WBC 8.52 RBC 4.01 L Hgb 12.4 L Hct 37.8 MCV 94 MCH 31 MCHC 33 RDW Coeff of Sage 12.4 Plt Count 158 Neut % (Auto) 74.1 H Lymph % (Auto) 14.6 L Upson % (Auto) 8.5 Eos % (Auto) 2.2 Baso % (Auto) 0.5 Neut # (Auto) 6.30 Lymph # (Auto) 1.20 Upson # (Auto) 0.70 Eos # (Auto) 0.19 Baso # (Auto) 0.04 Abs Immat Gran (auto) 0.01 Sodium Potassium Chloride Carbon Dioxide BUN Creatinine Estimated Creat Clear Estimated GFR Glucose Calcium Urine Color Yellow Urine Appearance Clear Urine pH 5.5 Ur Specific [place] >= 1.030 Urine Protein 3+ A Urine Glucose (UA) Negative Urine Ketones Trace A Urine Blood Trace-lysed A Urine Nitrite Negative Urine Bilirubin Negative Urine Urobilinogen 0.2 Ur Leukocyte Esterase Negative SARS-CoV-2 (PCR) Negative SARS-CoV-2 01/08/22 06:06 WBC RBC Hgb Hct MCV MCH MCHC RDW Coeff of Sage Plt Count Neut % (Auto) Lymph % (Auto) Upson % (Auto) Eos % (Auto) Baso % (Auto) Neut # (Auto) Lymph # (Auto) Upson # (Auto) Eos # (Auto) Baso # (Auto) Abs Immat Gran (auto) Sodium 134 L Potassium 3.8 Chloride 101 Carbon Dioxide 25 BUN 52 H Creatinine 2.4 H Estimated Creat Clear 26.82 Estimated GFR 26 Glucose 229 H Calcium 8.7 Urine Color Urine Appearance Urine pH Ur Specific [place] Urine Protein Urine Glucose (UA) Urine Ketones Urine Blood Urine Nitrite Urine Bilirubin Urine Urobilinogen Ur Leukocyte Esterase SARS-CoV-2 (PCR)
--- NOTE | 2022-01-08 18:50 | PC.NURSE ---
End of Shift: Patient pleasant and cooperative. Patient vitally stable, lungs clear, BS WNL, IV running NS at 75. Patient ceiling lift to chair. Patient rates pain as high as 7/10 and low 2/10, scheduled tylenol given and 5 of oxy given when available. Patient's BS's were 241, 156, and 81, novolog not given for dinner. Patient tolerating diet, but not with big appetite, patient urinating.
[2022-01-08 19:00] VITALS: BP 128/62; BP 151/62; PULSE 74; RESP 20; TEMP 36.5; O2SAT 94
[2022-01-08] MEDS: SENNOSIDES/DOCUSATE TABLET 1 TAB PO (20:41)
[2022-01-08] MEDS: GABAPENTIN 300 MG CAPSULE PO (20:41)
[2022-01-08] MEDS: ROSUVASTATIN CALCIUM 10 MG TABLET 40 MG PO (20:41)
[2022-01-08 23:00] VITALS: BP 155/71; PULSE 64; RESP 20; TEMP 36.6; O2SAT 96
[2022-01-09] VITALS (7 sets, daily range): BP systolic 121–155; BP diastolic 64–83; PULSE 65–80; RESP 20–22; TEMP 36.6; O2SAT 92–99
[2022-01-09 01:45] LABS: Bacteria Urine Moderate; RBC Urine 0-2 (0-2); Squamous Epithelial Cell Urine Few (None-Few); WBC Urine 0-2 (0-5)
--- NOTE | 2022-01-09 05:14 | PC.NURSE ---
[id number]: patient turn and repo in bed, 1LPM NC overnight while asleep sats drop to 87% on RA. patient appears to have slept soundly overnight.
[2022-01-09] MEDS: OXYCODONE 5 MG TABLET PO ×4 (05:40→21:29)
[2022-01-09] MEDS: ACETAMINOPHEN 500 MG TABLET 1000 MG PO ×3 (08:14→21:29)
[2022-01-09] MEDS: CHLORTHALIDONE 25 MG TABLET PO (08:15)
[2022-01-09] MEDS: SENNOSIDES/DOCUSATE TABLET 1 TAB PO ×2 (08:15→21:29)
[2022-01-09] MEDS: ASPIRIN 81 MG TABLET EC PO (08:15)
[2022-01-09] MEDS: lisinopriL 20 MG TABLET 40 MG PO (08:15)
[2022-01-09] MEDS: TAMSULOSIN HCL 0.4 MG CAPSULE PO (08:16)
[2022-01-09] MEDS: METOPROLOL SUCCINATE (XL) 25 MG TAB PO (08:16)
--- NOTE | 2022-01-09 09:52 | P.IMPN_ITS ---
Progress Note: A&P Assessment and plan (1) Right wrist fracture: Problem details: Non operable. Status: Acute Assessment and Plan: F/u with [facility] in 1 week with reimaging of the right forearm. If Dontrell is unable to make it to the clinic from the long-term, images could be done at the long-term and sent to Dr. Hwang. Oxycodone adequate for pain control. (2) ADRIANA (acute kidney injury): Problem details: Baseline Cr 1.5. Suspect dehydration. Status: Acute Assessment and Plan: Hold chlorthalidone and lisinopril. Has been on IVF. Recheck BMP today and stop IVF if improving. (3) Osteoarthritis of left knee: Status: Chronic (4) COPD (chronic obstructive pulmonary disease): Status: Chronic Assessment and Plan: Stable. (5) Hypertension: Status: Chronic Assessment and Plan: Fair control. Will be holding chlorthalione for ADRIANA. (6) Sleep apnea: Status: Chronic (7) Hyperlipidemia: Status: Chronic Assessment and Plan: Continue Rosuvastatin. (8) Diabetes: Status: Chronic Assessment and Plan: Continue home meds and ISS. Fair control for hospital. (9) Chronic kidney disease: Problem details: Baseline Cr 1.5 Status: Chronic (10) Osteoarthritis of knees, bilateral: Problem details: Left is greater than right. Left is severe, right is moderate. Status: Chronic Assessment and Plan: Dr. Quintanilla recommends WBAT and platform walker. Continue PT/OT. (11) CAD (coronary artery disease): Status: Chronic Assessment and Plan: Stable. Asymptomatic. (12) Constipation: Status: Acute Assessment and Plan: On senna-s and prn miralax. No BM yet. Give miralax again today. Plan Will need long-term facility. No accepting facility yet. No safe discharge option at this time. Continue seeking SNF. Subjective Time Seen by Provider: 09:13 Date Seen: 01/09/22 Interval history: Dontrell notes his pain is well controlled with oxycodone. He is starting to feel a bit stronger, but still requires a lot of assistance. EXAM General: No acute distress. Awake, alert, oriented x3. No pallor. No jaundice. Obese. Oropharynx: Clear. Mucous membranes moist. Cardiovascular: Regular rate and rhythm. No murmurs, gallops, or rubs. Respiratory: Clear to auscultation bilaterally. No wheezes or crackles. Abdomen: Bowel sounds present. Soft, nondistended, nontender. Extremities: Right forearm is in a splint. Neurovascularly intact in right fingertips. Exam Const: Vital Signs, click to edit/add: Vital Signs - 24 hr 01/08/22 11:00 01/08/22 15:00 01/08/22 15:00 Temperature 98 F Pulse Rate [Left P ulse Oximeter] 70 71 Respiratory Rate 16 20 Blood Pressure [Le ft Arm] 121/57 L Blood Pressure [Ri ght Arm] Pulse Oximetry 95 95 Oxygen Delivery Me thod Room Air Oxygen Flow Rate 01/08/22 15:00 01/08/22 19:00 01/08/22 23:00 Temperature 98.1 F 97.7 F 97.8 F Pulse Rate [Left P ulse Oximeter] 71 74 64 Respiratory Rate 20 20 20 Blood Pressure [Le ft Arm] 151/62 H Blood Pressure [Ri ght Arm] 128/62 128/62 155/71 H Pulse Oximetry 95 94 96 Oxygen Delivery Me thod Room Air Room Air Room Air Oxygen Flow Rate 01/08/22 23:00 01/08/22 23:00 01/09/22 03:00 Temperature Pulse Rate [Left P ulse Oximeter] 64 70 Respiratory Rate 20 20 Blood Pressure [Le ft Arm] Blood Pressure [Ri ght Arm] Pulse Oximetry 96 92 Oxygen Delivery Me thod Nasal Cannula Oxygen Flow Rate 1 Labs Labs: Laboratory Results - last 24 hr 01/07/22 22:00 Urine RBC 0-2 Urine WBC 0-2 Ur Squamous Epith Cells Few Urine Bacteria Moderate A
[2022-01-09 11:13] LABS: Chloride* 102 mmol/L (96-114); Sodium* 135 mmol/L (135-149)
[2022-01-09 11:16] LABS: Blood Urea Nitrogen* 54 mg/dL (7-30); Carbon Dioxide* 24 mmol/L (20-32); Creatinine* 2.5 mg/dL (0.5-1.5); Est. Creatinine Clearance* 25.75; Estimated Glomerular Filt Rate 25 ml/min; Glucose* 223 mg/dL (60-115)
--- NOTE | 2022-01-09 12:34 | PC.NURSE ---
Pt requested to use urinal at 1222 and unable to void. Bladder scanned for 387. Previous voids low in volume, 50-100 cc's each with clear yellow urine. Dr. De La Vega updated at 1230, no order for catheter or straight cath at this time, will continue to monitor.
--- NOTE | 2022-01-09 14:58 | PC.SOCIAL ---
Pt. was accepted to [facility] in a shared room. Pt. wants a private room and wanted to see if [facility] in [place] would accept. [facility] called back to say they do not have the staffing for a ceiling lift, heavy two person transfer at this time. Pt. was accepting of [facility]. Pt. need medical transport to [place]. [facility] was booked but can call in early AM to see if they have availability. 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 Pt. signed authorization for payment of the non-emergency EMS.
[2022-01-09] MEDS: polyethylene glycoL 3350 17 GM PACK PO (16:33)
--- NOTE | 2022-01-09 19:28 | PC.NURSE ---
pt has not had BM since 01/04- miralax given today with no results yet. Plan for pt to d/c tomorrow to [facility]- transport set up for 1000. Spouse verbalized she would be to the hospital at 0900. oxy for pain. pt had late lunch, denied dinner tray. BG 98- insulin non administered per pt. request.
[2022-01-09] MEDS: MAG HYDROX/ALUMINUM HYD/SIMETH 30 ML ORAL.SUSP 15 ML PO ×2 (19:59→23:30)
[2022-01-09] MEDS: ROSUVASTATIN CALCIUM 10 MG TABLET 40 MG PO (21:29)
[2022-01-09] MEDS: GABAPENTIN 300 MG CAPSULE PO (21:29)
[2022-01-10 03:00] VITALS: BP 147/77; PULSE 72; RESP 20; TEMP 36.6; O2SAT 91
--- NOTE | 2022-01-10 05:17 | PC.NURSE ---
[id number]: patient turn and repo in bed, can reposition self somewhat but will ask for assistance at times. arm wrap remains in place, patient room air overnight with out concern.
[2022-01-10 07:00] VITALS: BP 132/56; PULSE 82; RESP 20; TEMP 36.6; O2SAT 93
--- NOTE | 2022-01-10 08:16 | P.DS_ITS ---
DS: Providers Provider Time Seen by Provider: 07:50 Date Seen: 01/10/22 Date of admission: 01/07/22 17:24 Primary care physician: Bridger Danielson MD Admitting Clinician: Leonel Kinney MD Consults: 01/07/22 18:24 Consult to Occupational Therapy [CONS] Routine Comment: Reason(s) for OT Consult:: Adaptive Equipment Any Restrictions?:: No Restrictions Consult to Physical Therapy [CONS] Routine Comment: Reason(s) for PT Consult:: Evaluate Ambulation Any Restrictions?:: No Restrictions Consult to Associate Store Leader [CONS] Routine Comment: Reason for Consult:: Discharge Planning Needs Attending Physician on discharge: Faith Gomez MD Date of Discharge: 01/10/22 DS: Diagnosis Discharge Diagnosis (1) Constipation: Status: Acute (2) Right wrist fracture: Status: Acute Problem details: Fractures involving the distal radial metaphysis and ulnar styloid. Non operable. (3) Neuropathy: Status: Chronic (4) Chronic kidney disease: Status: Chronic Problem details: Baseline Cr 2.5 (5) Osteoarthritis of knees, bilateral: Status: Chronic Problem details: Left is greater than right. Left is severe, right is moderate. (6) CAD (coronary artery disease): Status: Chronic (7) Morbid obesity: Status: Acute (8) Diabetes: Status: Chronic (9) Hyperlipidemia: Status: Chronic (10) Hypertension: Status: Chronic (11) Sleep apnea: Status: Chronic (12) COPD (chronic obstructive pulmonary disease): Status: Chronic (13) Spinal stenosis of lumbosacral region: Status: Acute Problem details: CT abd/pelvis 01/07/22: Calcified disc osteophyte complex at L5-S1 with moderate spinal canal stenosis. DS: Summary Hospital Course Hospital Course: This is an 81-year-old male with severe osteoarthritis of the left knee who had been evaluated in the [facility] Emergency Department few days ago for that. He was sent home with a knee immobilizer and was having difficulty getting into the house with his walker when he fell and fractured his right wrist. He was admitted for observation. His wrist fracture is nonoperable at this time. Dr. Quintanilla from orthopedics recommends no knee immobilizer, weight-bearing as tolerated, splint to the right forearm and wrist with follow- up with him in 1 week. Dontrell has had an unremarkable hospital course. His pain has been well controlled with oxycodone. Time Spent with Patient Time attestation: Total time spent providing and/or coordinating discharge services: Exam Narrative: Exam Narrative: General: No acute distress. Awake, alert, oriented x3. No pallor. No jaundice. Obese. Cardiovascular: Regular rate and rhythm. No murmurs, gallops, or rubs. Respiratory: Clear to auscultation bilaterally. No wheezes or crackles. Abdomen: Bowel sounds present. Soft, nondistended, nontender. Extremities: Right forearm is in a splint. Neurovascularly intact in right fingertips. Const: Vital Signs, click to edit/add: Vital Signs - 24 hr 01/09/22 11:00 01/09/22 15:00 01/09/22 15:00 Temperature 97.8 F 97.9 F Pulse Rate [Left P ulse Oximeter] 80 67 Respiratory Rate 22 22 Blood Pressure [Le ft Arm] 128/83 121/64 Pulse Oximetry 96 96 92 Oxygen Delivery Me thod Room Air Room Air Oxygen Flow Rate 0 0 01/09/22 15:00 01/09/22 19:00 01/09/22 23:22 Temperature 98 F 98 F Pulse Rate [Left P ulse Oximeter] 67 65 77 Respiratory Rate 22 20 20 Blood Pressure [Le ft Arm] 148/72 H 155/67 H Pulse Oximetry 97 97 Oxygen Delivery Me thod Room Air Room Air Oxygen Flow Rate 0 01/09/22 23:00 01/09/22 23:00 01/10/22 03:00 Temperature 98 F Pulse Rate [Left P ulse Oximeter] 77 72 Respiratory Rate 20 20 Blood Pressure [Le ft Arm] 147/77 H Pulse Oximetry 97 91 Oxygen Delivery Me thod Room Air Oxygen Flow Rate 0 01/10/22 07:00 01/10/22 07:00 01/10/22 07:00 Temperature 98 F Pulse Rate [Left P ulse Oximeter] 82 82 Respiratory Rate 20 20 Blood Pressure [Le ft Arm] 132/56 L Pulse Oximetry 93 93 Oxygen Delivery Me thod Room Air Oxygen Flow Rate 0 DS: Data Data Completed and Pending Completed studies during hospitalization: Ordering Physician: Grant Pena M.D. Date of Service: 01/07/22 Procedure(s): CT abdomen pelvis wo con Accession Number(s): [id number] cc: Grant Pena M.D.; Bridger Danielson MD~ For Patients: As a result of the 21st Century Cures Act, medical imaging exams and procedure reports are released immediately into your electronic medical record. You may view this report before your referring provider. If you have questions, please contact your health care provider. INDICATION: abdominal pain, rebound tenderness TECHNIQUE: CT abdomen and pelvis without contrast, COMPARISON: None. FINDINGS: Kidney/ureters: Severe bilateral renal cortical atrophy. No kidney or ureteral stones and no hydronephrosis. No hydronephrosis. Unremarkable appearing bladder. Liver/gallbladder/bile ducts: The liver is normal in size, shape and attenuation. Gallbladder is normal without visualized stones or inflammation. No biliary dilatation. Spleen/pancreas/adrenal glands: The adrenal glands and pancreas are within normal limits. Calcified granulomata within the spleen. GI tract: Small hiatal hernia. 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 Colon diverticulosis without evidence of acute diverticulitis. Moderate fecal retention throughout the colon and rectum.. Normal appendix. Abdominal wall/omentum/peritoneum: No free air or significant free fluid. No mass or inflammation. Lymph nodes: No lymphadenopathy. Pelvis: Prostatomegaly measuring 5.1 x 6.6 cm. Lower chest: Bibasilar subpleural reticulation which may indicate fibrosis. Right basilar calcified granuloma. Bone: Calcified disc osteophyte complex at L5-S1 with moderate spinal canal stenosis. IMPRESSION: No evidence of acute intra-abdominal process. Small hiatal hernia. 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 Colon diverticulosis without evidence of acute diverticulitis. Prostatomegaly. Bibasilar subpleural reticulation which may indicate fibrosis. Calcified disc osteophyte complex at L5-S1 with moderate spinal canal stenosis. Please note that all CT scans at this facility use dose modulation, iterative reconstruction, and/or weight-based dosing when appropriate to reduce radiation dose to as low as reasonably achievable. Dictated by Damian Graham MD @ 01/07/2022 4:25:07 PM (Electronically Signed) Ordering Physician: Grant Pena M.D. Date of Service: 01/07/22 Procedure(s): XR wrist RT min 3V Accession Number(s): [id number] cc: Grant Pena M.D.; Bridger Danielson MD~ For Patients: As a result of the Cures Act, medical imaging exams and procedure reports are released immediately into your electronic medical record. You may view this report before your referring provider. If you have questions, please contact your health care provider. Indication: Injury and pain Technique: Right wrist 3 view Comparison: None Findings: The bones are osteopenic. There is mildly displaced fracture involving the distal radial metaphysis with dorsal angulation. Mildly displaced fracture of the ulnar styloid. There is adjacent soft tissue swelling. Impression: Fractures involving the distal radial metaphysis and ulnar styloid. Dictated by Damian Graham MD @ 01/07/2022 2:50:09 PM (Electronically Signed) Ordering Physician: Grant Pena M.D. Date of Service: 01/07/22 Procedure(s): CT cervical spine wo con Accession Number(s): [id number] cc: Grant Pena M.D.; Bridger Danielson MD~ For Patients: As a result of the Cures Act, medical imaging exams and procedure reports are released immediately into your electronic medical record. You may view this report before your referring provider. If you have questions, please contact your health care provider. INDICATION: Fall. TECHNIQUE: CT of the cervical spine without contrast. Coronal and sagittal reformats are included. COMPARISON: None. FINDINGS: No acute fracture or traumatic malalignment of the cervical spine. Craniocervical junction alignment is maintained. Mild degenerative cervical kyphosis. Mild to moderate disc degeneration most prominent at C5-6, C6-7 and C7-T1. Mild anterolisthesis at C3-4 and C4-5. Multilevel uncovertebral/facet arthrosis with mild to moderate bony neural foraminal stenosis at several levels. No high grade spinal canal stenosis as far as visualized. Imaged intracranial structures, cervical and paraspinous soft tissues are normal in appearance. The visualized pulmonary apices are clear. IMPRESSION: 1. No acute fracture or traumatic malalignment of the cervical spine. Please note that all CT scans at this facility use dose modulation, iterative reconstruction, and/or weight-based dosing when appropriate to reduce radiation dose to as low as reasonably achievable. Dictated by Markel Ferguson MD @ 01/07/2022 5:48:30 PM (Electronically Signed) Ordering Physician: Grant Pena M.D. Date of Service: 01/07/22 Procedure(s): CT head/brain wo con Accession Number(s): [id number] cc: Grant Pena M.D.; Bridger Danielson MD~ For Patients: As a result of the Cures Act, medical imaging exams and procedure reports are released immediately into your electronic medical record. You may view this report before your referring provider. If you have questions, please contact your health care provider. INDICATION: Fall. TECHNIQUE: CT of the head without contrast. Coronal and sagittal reformats are included. COMPARISON: None. FINDINGS: No acute intracranial hemorrhage. No mass effect or midline shift. No hydrocephalus or extra-axial collections. Scattered white matter hypoattenuation, typical for chronic microvascular ischemic change. Moderate generalized parenchymal volume loss. No acute osseous abnormalities. Mastoid air cells and paranasal sinuses are clear. Normal soft tissues. IMPRESSION: IMPRESSION: 1. No acute intracranial abnormalities. Please note that all CT scans at this facility use dose modulation, iterative reconstruction, and/or weight-based dosing when appropriate to reduce radiation dose to as low as reasonably achievable. Dictated by Markel Ferguson MD @ 01/07/2022 5:50:53 PM (Electronically Signed) Labs on day of discharge: Labs from last 24 hours 01/09/22 10:55 Sodium 135 Potassium 4.0 Chloride 102 Carbon Dioxide 24 BUN 54 H Creatinine 2.5 H Estimated Creat Clear 25.75 Estimated GFR 25 Glucose 223 H Calcium 9.0 Discharge Plan Discharge Disposition: Xfer Other Date of Admission: 01/07/22 17:24 Attending Provider on Discharge: Faith Gomez Primary Care Provider: Bridger Danielson Condition: Stable Anticipated Discharge Date/Time: 01/10/22 10:00 Discharge Medications: New sennosides-docusate sodium [Stool Softener-Laxative] 8.6-50 mg Tablet 2 tab PO BID Qty: 120 0RF oxycodone 5 mg Tablet 2.5 - 5 mg PO Q4H MDD 20 mg PRNQty: 30 0RF Continued rosuvastatin 40 mg tablet 40 mg PO HS lisinopril 40 mg tablet 40 mg PO DAILY gabapentin 300 mg capsule 300 mg PO HS chlorthalidone 25 mg tablet 25 mg PO DAILY tamsulosin 0.4 mg capsule 0.4 mg PO DAILY metoprolol succinate 25 mg tablet extended release 24 hr 25 mg PO DAILY aspirin 81 mg tablet,delayed release (DR/EC) 81 mg PO DAILY cholecalciferol (vitamin D3) [Vitamin D3] 25 mcg (1,000 unit) capsule 50 mcg PO DAILY insulin aspart U-100 [Novolog U-100 Insulin aspart] 100 unit/mL solution 20 unit subcut TIDWM acetaminophen 500 mg tablet 1,000 mg PO TID insulin glargine [Lantus U-100 Insulin] 100 unit/mL solution 45 unit SUBCUT BID Discharge Orders: Discharge Order (Routine); Ordered 01/10/22 Ordered By: Faith Gomez Activity Restrictions/Additional Instructions: Terrace in [place] Activity Level: Weight Bearing as Tolerated and Use Walker Activity Detail: Platform walker. Splint to right forearm. Discharge Diet: Diabetic Follow Up Appointments: Guero Quintanilla MD [Staff Physician] - (1 week with right forearm/wrist x-ray to follow up wrist fracture) Bridger Danielson MD [Primary Care Provider] - Forms: [facility] Info Instructions Hospital Course: This is an 81-year-old male with severe osteoarthritis of the left knee who had been evaluated in the [facility] Emergency Department few days ago for that. He was sent home with a knee immobilizer and was having difficulty getting into the house with his walker when he fell and fractured his right wrist. He was admitted for observation. His wrist fracture is nonoperable at this time. Dr. Quintanilla from orthopedics recommends no knee immobilizer, weight-bearing as tolerated, splint to the right forearm and wrist with follow- up with him in 1 week. Dontrell has had an unremarkable hospital course. His pain has been well controlled with oxycodone. Discharge Comments: per Dr Quintanilla: continue splint on right upper extremity until you see Orthopedics in one week. Staff: Please make appt with Ortho in a week [phone]. Plan to re-Xray wrist next week and decide at that time if surgery is needed or if continue non operative treatment. Keep splint clean and dry.
[2022-01-10] MEDS: lisinopriL 20 MG TABLET 40 MG PO (08:31)
[2022-01-10] MEDS: SENNOSIDES/DOCUSATE TABLET 1 TAB PO (08:31)
[2022-01-10] MEDS: CHLORTHALIDONE 25 MG TABLET PO (08:31)
[2022-01-10] MEDS: METOPROLOL SUCCINATE (XL) 25 MG TAB PO (08:31)
[2022-01-10] MEDS: TAMSULOSIN HCL 0.4 MG CAPSULE PO (08:31)
[2022-01-10] MEDS: ACETAMINOPHEN 500 MG TABLET 1000 MG PO (08:31)
[2022-01-10] MEDS: ASPIRIN 81 MG TABLET EC PO (08:31)
[2022-01-10] MEDS: OXYCODONE 5 MG TABLET PO (08:38)
[2022-01-10 09:35] VITALS: RESP 20; TEMP 36.6
[2022-01-10 09:50] VITALS: RESP 20; TEMP 36.6
[2022-01-10 09:54] VITALS: PULSE 82; RESP 20; TEMP 36.6
--- NOTE | 2022-01-10 10:13 | PC.NURSE ---
Pt. discharged to [facility] via non-emergent transport at 0955. present at bedside. Pt. rated pain 10/10 when moving around. 5mg Oxy PRN administered at 0930 w/relief. Pt. verbalized improvement in pain. Nurse to Nurse given to CARLIE Gardner. VSS pt. denied N/V or SOB. Pt. ceiling lifted to commode to have BM but was not able to have a BM. Pt. notified of using a suppository but refused since he was being transferred via EMS. BG 172 Insulin administered. see eMAR.
== END 2022-01-10 10:00 | disposition other institution (70) ==
LOC: ED 17:16 → MEDSURG 17:25
PROVIDERS: Family Medicine; Admitting Provider Internal Medicine; Emergency Provider Emergency Medicine Emergency Medical Services; PCP Family Medicine; Visit Provider Internal Medicine
DX: S52.611A Displaced fracture of right ulna styloid process, initial encounter for closed fracture (principal); S52.591A Other fractures of lower end of right radius, initial encounter for closed fracture; M17.0 Bilateral primary osteoarthritis of knee; I12.9 Hypertensive chronic kidney disease with stage 1 through stage 4 chronic kidney disease, or unspecified chronic kidney disease; N18.9 Chronic kidney disease, unspecified; E11.22 Type 2 diabetes mellitus with diabetic chronic kidney disease; Z68.39 Body mass index [BMI] 39.0-39.9, adult; E66.01 Morbid (severe) obesity due to excess calories; K59.00 Constipation, unspecified; I25.10 Atherosclerotic heart disease of native coronary artery without angina pectoris; E78.5 Hyperlipidemia, unspecified; G62.9 Polyneuropathy, unspecified; G47.30 Sleep apnea, unspecified; J44.9 Chronic obstructive pulmonary disease, unspecified; M48.07 Spinal stenosis, lumbosacral region; N40.0 Benign prostatic hyperplasia without lower urinary tract symptoms; Z87.891 Personal history of nicotine dependence; K44.9 Diaphragmatic hernia without obstruction or gangrene; K57.30 Diverticulosis of large intestine without perforation or abscess without bleeding; Z79.4 Long term (current) use of insulin; Z79.82 Long term (current) use of aspirin; M25.531 Pain in right wrist; R10.9 Unspecified abdominal pain
CPT/HCPCS: 36415; 51798; 70450; 72125; 73110; 74176; 80048; 81003; 81015; 82947; 82962; 85025; 87086; 87635; 94761; 96360; 96361; 96372; 97110; 97140; 97162; 97165; 97530; 97535; 99285; A9270; G0378; G0379; J7030

== ENCOUNTER 2022-01-10 09:43 | Outpatient (CLI) | payer MEDICARE, SELFPAY | END 2022-01-10 09:44 | disposition home or self-care (01) | LOC: AMB 02-08 09:03 | PROVIDERS: PCP Family Medicine; Visit Provider Student in an Organized Health Care Education/Training Program | DX: S69.91XS Unspecified injury of right wrist, hand and finger(s), sequela (principal) | CPT/HCPCS: A0425; A0428 ==

== ENCOUNTER 2022-02-24 10:22 | Outpatient (CLI) | payer MEDICARE, SELFPAY | END 2022-02-24 10:23 | disposition home or self-care (01) | LOC: AMB 02-28 12:30 | PROVIDERS: PCP Family Medicine; Visit Provider Emergency Medicine Emergency Medical Services | DX: R10.9 Unspecified abdominal pain (principal) | CPT/HCPCS: A0425; A0427 ==

== ENCOUNTER 2022-02-24 11:06 | Observation (INO) | payer MEDICARE, SELFPAY ==
[2022-02-24] VITALS (24 sets, daily range): BP systolic 103–140; BP diastolic 58–71; PULSE 74–89; RESP 18–20; TEMP 35.9–36.6; O2SAT 91–97; BMI 36.1; BMI 79.7
--- NOTE | 2022-02-24 11:20 | ED.NURSE ---
Pt states he has pain from his back surgeries. Became upset when asked if he could rate the pain numerically, would not give number.
--- NOTE | 2022-02-24 11:51 | ED.GENADULT ---
HPI - General Adult General Chief complaint: Urogenital Problems, Male Stated complaint: Possible UTI Time Seen by Provider: 02/24/22 11:14 History of Present Illness HPI narrative: This 81-year-old male comes in with his because several issues. He states that he is not able to void much urine and wonders if he has urinary retention or infection. He also has nausea with some vomiting. He has generalized weakness and states that he has much difficulty getting up to ambulate. He was seen about 6 weeks ago in the emergency department because of knee pain. There was no particular injury event at that time he was evaluated and sent home. Upon arriving home he fell and return to emergency room were I saw him a couple days later. He had a wrist fracture. He was admitted to the hospital overnight and placed in a rehab nursing facility. He was frustrated with the level of care that he received there and checked himself out of that facility to go back home. He now comes in here with a knee brace on and a wrist splint and his is stating that she can take care of him any longer. He has not had any fevers. Related Data Home Medications Medication Instructions Recorded Confirmed aspirin 81 mg tablet,delayed 81 mg PO DAILY 12/21/21 02/24/22 release chlorthalidone 25 mg tablet 25 mg PO DAILY 12/21/21 02/24/22 cholecalciferol (vitamin D3) 25 50 mcg PO DAILY 12/21/21 02/24/22 mcg (1,000 unit) capsule (Vitamin D3) gabapentin 300 mg capsule 300 mg PO HS 12/21/21 02/24/22 metoprolol succinate 25 mg 25 mg PO DAILY 12/21/21 02/24/22 tablet,extended release 24 hr rosuvastatin 40 mg tablet 40 mg PO HS 12/21/21 02/24/22 tamsulosin 0.4 mg capsule 0.4 mg PO DAILY 12/21/21 02/24/22 insulin aspart U-100 100 unit/mL 20 unit subcut TIDWM 12/25/21 02/24/22 subcutaneous solution (Novolog U-100 Insulin aspart) acetaminophen 500 mg tablet 1,000 mg PO TID 01/07/22 02/24/22 insulin glargine 100 unit/mL 45 unit subcut BID 01/08/22 02/24/22 subcutaneous solution (Lantus U-100 Insulin) bisacodyl 10 mg rectal suppository 10 mg UT ONCE 02/15/22 02/15/22 lisinopril 20 mg tablet 40 mg PO QDAY 02/15/22 02/24/22 omeprazole 20 mg capsule,delayed 20 mg PO QDAY 02/15/22 02/24/22 release oxycodone 5 mg capsule 2.5 - 5 mg PO Q4H PRN 02/15/22 02/15/22 polyethylene glycol 3350 17 4 g PO QDAY 02/15/22 02/15/22 gram/dose oral powder (Miralax) Allergies Allergy/AdvReac Type Severity Reaction Status Date / Time nifedipine AdvReac feet Verified 02/15/22 10:35 swelling calcium channel blockers AdvReac feet Uncoded 02/15/22 10:35 swelling Review of Systems Status of ROS: Reports: 10 or more systems reviewed and unremarkable except as noted in History and below Narrative: Constitutional: No fevers, no weight gain or loss. Generalized weakness. Eyes: No discharge. No vision changes. HENT: No congestion, no sore throat, no ear pain. Cardiovascular: No chest pain, no palpitations. Respiratory: No shortness of breath, no wheezes, no cough. Gastrointestinal: No abdominal pain, no vomiting, no diarrhea. Genitourinary: Decreased urine output which he states is not new and attributes to enlarged prostate. Musculoskeletal: Normal range of motion. Skin: No rashes, no pruritis. Neurological: No dizziness, weakness, sensory change, speech change. Endo/Heme/Allergies: No bruising or bleeding. No polydipsia. Pysch: no suicidality, no anxiety, no insomnia. All other systems reviewed and are negative. [facility] Medical History (Updated 02/24/22 @ 16:37 by Grant Pena MD) BPH (benign prostatic hyperplasia) CAD (coronary artery disease) Chronic kidney disease Chronic renal insufficiency Colon polyp COPD (chronic obstructive pulmonary disease) Diabetes Hyperlipidemia Hypertension Impairment of balance Neuropathy Osteoarthritis of knees, bilateral Osteoarthritis of left knee Right rotator cuff tear Right wrist fracture (01/07/22) Sleep apnea Stroke Surgical History History of arthroscopy of right knee (02/17/01) History of lumbar laminectomy S/P medial meniscectomy of right knee (01/27/07) S/P TURP (status post transurethral resection of prostate) Family History Mother Heart problem Hyperlipidemia Father Heart problem Other Diabetes Social History Smoking Status: Never smoker Do you use any of these nicotine containing products: None How often do you have a drink containing alcohol: never AUDIT-C Alcohol total score: 0 Non-prescribed substance use: denies use service: No Exam Narrative: Exam Narrative: Constitutional: Well-developed, well-nourished, no acute distress. Obesity. Deconditioned. HEENT: Normocephalic, atraumatic. Neck: Normal range of motion. Nontender. Supple. Heart: Regular. No murmurs. Normal rate. Intact distal pulses. Lungs: Clear to auscultation. No chest discomfort. No wheezes, rhonchi, or rales. Abdomen: Normal bowel sounds. Nontender. No rebound tenderness. Genitalia: Deferred. Back: Normal range of motion. Extremities: He is wearing a brace on his left knee. Orthopedic assessment of this knee stated that he is not a candidate for knee replacement. He has a splint on his right wrist from wrist fracture that occurred about 6 weeks ago. Skin: Intact. No rash. Warm. No erythema or pallor. Neurologic: No altered sensation. Alert and oriented. Generalized weakness due to deconditioning. No unilateral weakness. Psychiatric: No suicidality. No anxiety or depression. No insomnia. Nursing notes and vitals signs are reviewed. Const: Vital Signs, click to edit/add: Vital Signs - 24 hr 02/24/22 11:13 02/24/22 12:49 02/24/22 13:01 Temperature 96.7 F L Pulse Rate 76 Pulse Rate [Right Pulse Oximeter] 89 Respiratory Rate 20 Blood Pressure 132/59 L Blood Pressure [Ri ght Upper Arm] 122/70 Pulse Oximetry 95 92 Oxygen Delivery Me thod Room Air 02/24/22 13:31 02/24/22 13:41 02/24/22 13:45 Temperature Pulse Rate 80 85 Pulse Rate [Right Pulse Oximeter] Respiratory Rate Blood Pressure 103/58 L Blood Pressure [Ri ght Upper Arm] Pulse Oximetry 94 91 Oxygen Delivery Me thod 02/24/22 14:01 02/24/22 14:31 02/24/22 14:33 Temperature Pulse Rate 82 Pulse Rate [Right Pulse Oximeter] Respiratory Rate Blood Pressure 123/63 128/68 Blood Pressure [Ri ght Upper Arm] Pulse Oximetry 95 Oxygen Delivery Me thod 02/24/22 14:45 02/24/22 15:00 02/24/22 15:01 Temperature Pulse Rate 84 80 81 Pulse Rate [Right Pulse Oximeter] Respiratory Rate Blood Pressure 138/68 Blood Pressure [Ri ght Upper Arm] Pulse Oximetry 97 97 91 Oxygen Delivery Me thod 02/24/22 15:15 02/24/22 15:30 02/24/22 15:31 Temperature Pulse Rate 81 80 81 Pulse Rate [Right Pulse Oximeter] Respiratory Rate Blood Pressure 135/65 Blood Pressure [Ri ght Upper Arm] Pulse Oximetry 93 96 95 Oxygen Delivery Me thod Course Vital Signs Vital signs: Initial Vital Signs Temperature 96.7 F L 02/24/22 11:13 Temperature Source Temporal Artery Scan 02/24/22 11:13 Pulse Rate 89 02/24/22 11:13 Respiratory Rate 20 02/24/22 11:13 Blood Pressure 122/70 02/24/22 11:13 Blood Pressure Mean 87 02/24/22 11:13 Blood Pressure Position Supine 02/24/22 11:13 Pulse Oximetry 95 02/24/22 11:13 Oxygen Delivery Method 02/24/22 11:13 Vital Signs Temperature 96.7 F L 02/24/22 11:13 Pulse Rate 89 02/24/22 11:13 Respiratory Rate 20 02/24/22 11:13 Blood Pressure 122/70 02/24/22 11:13 Pulse Oximetry 95 02/24/22 11:13 Oxygen Delivery Method 02/24/22 11:13 Temperature 96.7 F L 02/24/22 11:13 Pulse Rate 81 02/24/22 15:31 Respiratory Rate 20 02/24/22 11:13 Blood Pressure 135/65 02/24/22 15:31 Pulse Oximetry 95 02/24/22 15:31 Oxygen Delivery Method 02/24/22 11:13 Medical Decision Making MDM Narrative Medical decision making narrative: This patient comes in by ambulance because of generalized weakness. He also is concerned that he may have a urinary tract infection. His is stating that she cannot take care of things at home because he is not strong enough even to rollover. An IV was established and labs acquired which returned with no significantly remarkable findings. A bladder scan showed 280 mL of urine in the bladder. He did have a Garcia catheter placed and urinalysis returns with no sign of infection. I spoke with the hospitalist distribution transformer assembler, Dr. Reyes, who is able to bring the patient in to the hospital in an observation status. He will need to be placed in a longterm facility for rehab. Lab Data Labs: Lab Results 02/24/22 02/24/22 02/24/22 Range/Units 11:48 11:48 13:45 WBC 13.35 H (4.50-11.00) K/uL RBC 4.27 L (4.30-5.90) m/uL Hgb 13.2 L (13.5-17.5) gm/dL Hct 40.2 (37.0-53.0) % MCV 94 (80-100) fL MCH 31 (26-34) pg MCHC 33 (32-36) gm/dL RDW Coeff of Sage 12.5 (11.5-15.5) % Plt Count 293 (140-440) K/uL Neut % (Auto) 78.1 H (42.0-72.0) % Lymph % (Auto) 10.1 L (20-44) % [place] % (Auto) 8.3 (0.0-11.0) % Eos % (Auto) 2.5 (0.0-7.0) % Baso % (Auto) 0.6 (0.0-3.0) % Neut # (Auto) 10.40 H (1.7-7.0) K/uL Lymph # (Auto) 1.30 (0.90-2.90) K/uL [place] # (Auto) 1.10 H (0.00-0.90) K/UL Eos # (Auto) 0.30 (0.00-0.50) K/uL Baso # (Auto) 0.10 (0.00-0.30) K/uL Abs Immat Gran (auto) 0.10 (0.00-0.30) K/uL Imm/Tot Granulo (auto) 0.4 % Sodium 135 (135-149) mmol/L Potassium 4.6 (3.6-5.1) mmol/L Chloride 96 (96-114) mmol/L Carbon Dioxide 26 (20-32) mmol/L BUN 90 H (7-30) mg/dL Creatinine 3.1 H (0.5-1.5) mg/dL Estimated Creat Clear 20.76 Estimated GFR 19 ml/min Glucose 90 (60-115) mg/dL Calcium 11.0 H (8.4-10.6) mg/dL Urine Color Yellow (Yellow) Urine Appearance Clear (Clear) Urine pH 5.0 (5.0-8.5) Ur Specific [place] >= 1.030 (1.000-1.030) Urine Protein 2+ A (Negative) Urine Glucose (UA) Negative (Negative) Urine Ketones Negative (Negative) Urine Blood Negative (Negative) Urine Nitrite Negative (Negative) Urine Bilirubin Negative (Negative) Urine Urobilinogen 0.2 (0.2-1.0) Ur Leukocyte Esterase Negative (Negative) Urine RBC 0-2 (0-2) Urine WBC 0-2 (0-5) Ur Squamous Epith Cells Few (None-Few) Urine Bacteria None (None) Coarse Granular Casts Moderate A (None) SARS-CoV-2 (PCR) (Negative) Influenza Type A (PCR) (Negative) Influenza Type B (PCR) (Negative) 02/24/22 Range/Units 14:37 WBC (4.50-11.00) K/uL RBC (4.30-5.90) m/uL Hgb (13.5-17.5) gm/dL Hct (37.0-53.0) % MCV (80-100) fL MCH (26-34) pg MCHC (32-36) gm/dL RDW Coeff of Sage (11.5-15.5) % Plt Count (140-440) K/uL Neut % (Auto) (42.0-72.0) % Lymph % (Auto) (20-44) % [place] % (Auto) (0.0-11.0) % Eos % (Auto) (0.0-7.0) % Baso % (Auto) (0.0-3.0) % Neut # (Auto) (1.7-7.0) K/uL Lymph # (Auto) (0.90-2.90) K/uL [place] # (Auto) (0.00-0.90) K/UL Eos # (Auto) (0.00-0.50) K/uL Baso # (Auto) (0.00-0.30) K/uL Abs Immat Gran (auto) (0.00-0.30) K/uL Imm/Tot Granulo (auto) % Sodium (135-149) mmol/L Potassium (3.6-5.1) mmol/L Chloride (96-114) mmol/L Carbon Dioxide (20-32) mmol/L BUN (7-30) mg/dL Creatinine (0.5-1.5) mg/dL Estimated Creat Clear Estimated GFR ml/min Glucose (60-115) mg/dL Calcium (8.4-10.6) mg/dL Urine Color (Yellow) Urine Appearance (Clear) Urine pH (5.0-8.5) Ur Specific [place] (1.000-1.030) Urine Protein (Negative) Urine Glucose (UA) (Negative) Urine Ketones (Negative) Urine Blood (Negative) Urine Nitrite (Negative) Urine Bilirubin (Negative) Urine Urobilinogen (0.2-1.0) Ur Leukocyte Esterase (Negative) Urine RBC (0-2) Urine WBC (0-5) Ur Squamous Epith Cells (None-Few) Urine Bacteria (None) Coarse Granular Casts (None) SARS-CoV-2 (PCR) Negative SARS-CoV-2 (Negative) Influenza Type A (PCR) Negative PCR FLU A (Negative) Influenza Type B (PCR) Negative PCR FLU B (Negative) ECG Data Attestation: I personally reviewed and interpreted this ECG as follows: Interpretation: Normal sinus rhythm. Rate is 82 beats per minute. There are no specific ST or T-wave abnormalities. Discharge Plan Discharge Clinical Impression: Weakness generalized Patient Disposition: Admitted As Inpatient Condition: Unchanged Prescriptions: No Action rosuvastatin 40 mg tablet 40 mg PO HS gabapentin 300 mg capsule 300 mg PO HS chlorthalidone 25 mg tablet 25 mg PO DAILY tamsulosin 0.4 mg capsule 0.4 mg PO DAILY metoprolol succinate 25 mg tablet extended release 24 hr 25 mg PO DAILY aspirin 81 mg tablet,delayed release (DR/EC) 81 mg PO DAILY cholecalciferol (vitamin D3) [Vitamin D3] 25 mcg (1,000 unit) capsule 50 mcg PO DAILY insulin aspart U-100 [Novolog U-100 Insulin aspart] 100 unit/mL solution 20 unit subcut TIDWM bisacodyl 10 mg suppository 10 mg UT ONCE lisinopril 20 mg tablet 40 mg PO QDAY omeprazole 20 mg capsule,delayed release(DR/EC) 20 mg PO QDAY polyethylene glycol 3350 [Miralax] 17 gram/dose powder 4 g PO QDAY oxycodone 5 mg capsule 2.5 - 5 mg PO Q4H PRN acetaminophen 500 mg tablet 1,000 mg PO TID insulin glargine [Lantus U-100 Insulin] 100 unit/mL solution 45 unit SUBCUT BID Follow Up/Referrals: Bridger Danielson MD [Primary Care Provider] -
[2022-02-24 12:14] LABS: Basophils Percent Auto 0.6 % (0.0-3.0); Eosinophils Percent Auto 2.5 % (0.0-7.0); Hematocrit 40.2 % (37.0-53.0); Hemoglobin* 13.2 gm/dL (13.5-17.5); Immature Granulocytes Pct Auto 0.4 %; Lymphocytes Percent Auto 10.1 % (20-44); Mean Corpuscular HGB Conc 33 gm/dL (32-36); Mean Corpuscular Hemoglobin 31 pg (26-34); Mean Corpuscular Volume 94 fL (80-100); Monocytes Percent Auto 8.3 % (0.0-11.0); Neutrophils Percent Auto 78.1 % (42.0-72.0); Platelet Count* 293 K/uL (140-440); RDW Coefficient of Variation % 12.5 % (11.5-15.5); Red Blood Count 4.27 m/uL (4.30-5.90); White Blood Count* 13.35 K/uL (4.50-11.00)
[2022-02-24] MEDS: ONDANSETRON 2 MG/ML inj 4 MG IVP (12:14)
[2022-02-24] MEDS: 0.9 % SODIUM CHLORIDE 1000 ml 1,000 ML IV (12:14)
[2022-02-24 12:17] LABS: Slide Review Reflex No
[2022-02-24 12:32] LABS: Chloride* 96 mmol/L (96-114); Potassium* 4.6 mmol/L (3.6-5.1); Sodium* 135 mmol/L (135-149)
[2022-02-24 12:35] LABS: Creatinine* 3.1 mg/dL (0.5-1.5); Est. Creatinine Clearance* 20.76; Estimated Glomerular Filt Rate 19 ml/min
[2022-02-24 12:36] LABS: Blood Urea Nitrogen* 90 mg/dL (7-30); Carbon Dioxide* 26 mmol/L (20-32); Glucose* 90 mg/dL (60-115)
[2022-02-24] MEDS: lidocaine HCL 2 % JELLY (TOP) STERILE 6 ML TOPICAL (13:24)
--- NOTE | 2022-02-24 13:45 | ED.NURSE ---
Pt stated that he could not void into urinal and did not want to be straight cathed. Pt stated that he would like to be treated for a urinary infection. Informed pt that he could not be treated without having a UA. Agreeed to straight cath. cath was difficult. Dr Pena updated and wanted an attempted with urojet and coude. Pt agreeable. 14f coude placed. Drained about 670ml of ronna colored urine. Will leave in place for now per Dr Pena.
[2022-02-24 14:00] LABS: Appearance Urine Clear (Clear); Bilirubin Urine Negative (Negative); Blood Urine Negative (Negative); Color Urine Yellow (Yellow); Glucose Urine Negative (Negative); Ketones Urine Negative (Negative); Leukocyte Esterase Urine Negative (Negative); Nitrite Urine Negative (Negative); Protein Urine 2+ (Negative); Specific Gravity Urine >= 1.030 (1.000-1.030); Urobilinogen Urine 0.2 (0.2-1.0)
[2022-02-24 14:15] LABS: Coarse Granular Casts Urine Moderate; RBC Urine 0-2 (0-2); Squamous Epithelial Cell Urine Few (None-Few); WBC Urine 0-2 (0-5)
[2022-02-24] MEDS: OXYCODONE 5 MG TABLET PO (14:45)
[2022-02-24 15:29] LABS: PCR FLU A Negative PCR FLU A (Negative); PCR FLU B Negative PCR FLU B (Negative)
[2022-02-24 15:34] LABS: SARS PCR* Negative SARS-CoV-2 (Negative)
--- NOTE | 2022-02-24 17:42 | ED.NURSE ---
Report to CARLIE Kwok on [facility]
--- NOTE | 2022-02-24 17:49 | ED.NURSE ---
Pt and belonging brought to [facility] via cart
--- NOTE | 2022-02-24 19:31 | P.IMHP_ITS ---
Hospitalist- H&P: HPI History of Present Illness Time Seen by Provider: 19:30 Date Seen: 02/24/22 Chief complaint: Weakness Narrative: Dontrell Ramirez is a 81 year old man presents accompanied by with concerns of being too weak to be able to stay home safely. He worries that he might have a bladder infection. Six weeks ago assessed in the emergency department for knee pain without any particular injury or finding at that time. Returned a couple days later found to have a wrist fracture. Acknowledges increasing weakness. Admitted to the hospital at that time for safety concerns and placement. Transferred to a intermediate in [place]. Remained in the nursing facility for about 4 weeks. Had bad experience at the nursing facility. Left the nursing facility against medical advice. Return home with . has been trying to care for him at home but indicates she is not capable of providing the care that he needs. Patient is no longer able to assist with adan cares or elimination. Has had nausea and vomiting the last couple of days. Denies hematemesis. Has had a couple of episodes of loose stools as well. Denies hematochezia. Has had decreased oral intake. Denies fevers, rigors, diaphoresis. Denies abdominal pain. Patient wonders if he might have a bladder infection. Denies dysuria, urgency, frequency, hematuria. He is not able to transfer up in or out of bed. is too frail to be able to provide the level of care is that he is requiring at this time. Review of Systems Status of ROS: Reports: 10 or more systems reviewed and unremarkable except as noted in History and below Narrative: Denies chest heaviness, pressure, tightness, or pain. Denies dyspnea at rest, paroxysmal nocturnal dyspnea, orthopnea. Denies syncope or near-syncope. Denies orthostasis. No focal motor neurologic deficits. Denies skin changes, rashes, cyanosis, petechiae. Denies myalgias or arthralgias. U tilizing the right wrist and left knee braces. [facility] Medical History (Updated 02/24/22 @ 19:46 by Janak Reyes MD) BPH (benign prostatic hyperplasia) CAD (coronary artery disease) Chronic kidney disease Chronic renal insufficiency Colon polyp COPD (chronic obstructive pulmonary disease) Diabetes Hyperlipidemia Hypertension Impairment of balance Neuropathy Osteoarthritis of knees, bilateral Osteoarthritis of left knee Right rotator cuff tear Right wrist fracture (01/07/22) Sleep apnea Stroke Surgical History History of arthroscopy of right knee (02/17/01) History of lumbar laminectomy S/P medial meniscectomy of right knee (01/27/07) S/P TURP (status post transurethral resection of prostate) Family History Mother Heart problem Hyperlipidemia Father Heart problem Other Diabetes Social History Highest level of school completed/degree received: high school graduate Smoking Status: Never smoker Do you use any of these nicotine containing products: None How often do you have a drink containing alcohol: never AUDIT-C Alcohol total score: 0 Non-prescribed substance use: denies use Caffeine: Yes service: No Meds Home Medications and Allergies Home Medications Medication Instructions Recorded Confirmed Type aspirin 81 mg tablet,delayed 81 mg PO DAILY 12/21/21 02/24/22 History release chlorthalidone 25 mg tablet 25 mg PO DAILY 12/21/21 02/24/22 History cholecalciferol (vitamin D3) 25 50 mcg PO DAILY 12/21/21 02/24/22 History mcg (1,000 unit) capsule (Vitamin D3) gabapentin 300 mg capsule 300 mg PO HS 12/21/21 02/24/22 History metoprolol succinate 25 mg 25 mg PO DAILY 12/21/21 02/24/22 History tablet,extended release 24 hr rosuvastatin 40 mg tablet 40 mg PO HS 12/21/21 02/24/22 History tamsulosin 0.4 mg capsule 0.4 mg PO DAILY 12/21/21 02/24/22 History insulin aspart U-100 100 unit/mL 20 unit subcut TIDWM 12/25/21 02/24/22 History subcutaneous solution (Novolog U-100 Insulin aspart) acetaminophen 500 mg tablet 1,000 mg PO TID 01/07/22 02/24/22 History insulin glargine 100 unit/mL 45 unit subcut BID 01/08/22 02/24/22 History subcutaneous solution (Lantus U-100 Insulin) bisacodyl 10 mg rectal suppository 10 mg MS ONCE 02/15/22 02/15/22 History lisinopril 20 mg tablet 40 mg PO QDAY 02/15/22 02/24/22 History omeprazole 20 mg capsule,delayed 20 mg PO QDAY 02/15/22 02/24/22 History release oxycodone 5 mg capsule 2.5 - 5 mg PO Q4H PRN 02/15/22 02/15/22 History polyethylene glycol 3350 17 4 g PO QDAY 02/15/22 02/15/22 History gram/dose oral powder (Miralax) Allergies Allergy/AdvReac Type Severity Reaction Status Date / Time nifedipine AdvReac feet Verified 02/15/22 10:35 swelling calcium channel blockers AdvReac feet Uncoded 02/15/22 10:35 swelling Exam Narrative: Exam Narrative: No acute distress. Appears comfortable when I see him. Alert, oriented to self, place, time, situation. Articulate, cooperative. Somewhat frustrated, anxious, and depressed. Mood and affect are congruent. Hearing and vision are grossly normal. No icterus or conjunctival injection. Midline septum. Dentition in fair repair. Tight oral aperture. Neck is supple. Midline trachea. Normal thyroid. No JVD or hepatojugular reflux. No lymphadenopathy. Lungs are clear to auscultation. No CVA tenderness. Heart tones with regular rhythm, normal S1-S2. Abdomen with active bowel sounds, soft, nontender. Extremities without edema. Has soft splint on right wrist and left knee. No focal motor neurologic deficits. Skin is warm, dry, intact. Const: Vital Signs, click to edit/add: Vital Signs - 24 hr 02/24/22 11:13 02/24/22 12:49 02/24/22 13:01 Temperature 96.7 F L Pulse Rate 76 Pulse Rate [Right Pulse Oximeter] 89 Respiratory Rate 20 Blood Pressure 132/59 L Blood Pressure [Ri ght Upper Arm] 122/70 Pulse Oximetry 95 92 Oxygen Delivery Me thod Room Air 02/24/22 13:31 02/24/22 13:41 02/24/22 13:45 Temperature Pulse Rate 80 85 Pulse Rate [Right Pulse Oximeter] Respiratory Rate Blood Pressure 103/58 L Blood Pressure [Ri ght Upper Arm] Pulse Oximetry 94 91 Oxygen Delivery Me thod 02/24/22 14:01 02/24/22 14:31 02/24/22 14:33 Temperature Pulse Rate 82 Pulse Rate [Right Pulse Oximeter] Respiratory Rate Blood Pressure 123/63 128/68 Blood Pressure [Ri ght Upper Arm] Pulse Oximetry 95 Oxygen Delivery Me thod 02/24/22 14:45 02/24/22 15:00 02/24/22 15:01 Temperature Pulse Rate 84 80 81 Pulse Rate [Right Pulse Oximeter] Respiratory Rate Blood Pressure 138/68 Blood Pressure [Ri ght Upper Arm] Pulse Oximetry 97 97 91 Oxygen Delivery Me thod 02/24/22 15:15 02/24/22 15:30 02/24/22 15:31 Temperature Pulse Rate 81 80 81 Pulse Rate [Right Pulse Oximeter] Respiratory Rate Blood Pressure 135/65 Blood Pressure [Ri ght Upper Arm] Pulse Oximetry 93 96 95 Oxygen Delivery Me thod 02/24/22 15:32 02/24/22 15:45 02/24/22 16:01 Temperature Pulse Rate 80 80 Pulse Rate [Right Pulse Oximeter] Respiratory Rate Blood Pressure 135/63 Blood Pressure [Ri ght Upper Arm] Pulse Oximetry 96 96 Oxygen Delivery Me thod 02/24/22 16:31 02/24/22 17:01 02/24/22 17:31 Temperature 96.9 F L Pulse Rate Pulse Rate [Right Pulse Oximeter] Respiratory Rate Blood Pressure 138/60 136/71 132/63 Blood Pressure [Ri ght Upper Arm] Pulse Oximetry 97 Oxygen Delivery Me thod Documenting provider has reviewed patient's vital signs: yes Hospitalist - H&P: Result Labs Labs: Short CBC 02/24/22 Range/Units 11:48 WBC 13.35 H (4.50-11.00) K/uL Hgb 13.2 L (13.5-17.5) gm/dL Hct 40.2 (37.0-53.0) % Plt Count 293 (140-440) K/uL BMP 02/24/22 11:48 Sodium 135 Potassium 4.6 Chloride 96 Carbon Dioxide 26 BUN 90 H Creatinine 3.1 H Glucose 90 Calcium 11.0 H Urine 02/24/22 Range/Units 13:45 Urine Color Yellow (Yellow) Urine Appearance Clear (Clear) Urine pH 5.0 (5.0-8.5) Ur Specific [place] >= 1.030 (1.000-1.030) Urine Protein 2+ A (Negative) Urine Glucose (UA) Negative (Negative) Assessment and Plan Assessment and plan (1) Acute kidney injury (nontraumatic): Status: Acute (2) Dehydration: Status: Acute (3) Chronic kidney disease: Problem comment: Baseline Cr 2.5 Status: Acute (4) Nausea and vomiting: Status: Acute (5) Loose stools: Status: Acute (6) Decreased oral intake: Status: Acute (7) Weakness generalized: Status: Acute (8) Diabetes: Status: Acute (9) Right wrist fracture: Problem comment: mildly displaced left distal radial metaphysis and ulnar styloid fracture (DOI: 01/07/2022) Status: Acute (10) Osteoarthritis of knees, bilateral: Problem comment: Left is greater than right. Left is severe, right is moderate. Status: Chronic (11) Spinal stenosis of lumbosacral region: Problem comment: CT abd/pelvis 01/07/22: Calcified disc osteophyte complex at L5-S1 with moderate spinal canal stenosis. Status: Acute (12) Morbid obesity: Status: Acute Plan 1. Reviewed impression with physician in emergency department. 2. Reviewed impression with patient and . Answered their questions. 3. Admit for observation. 4. Work with physical therapy, occupational therapy, and director of social services to establish possible need safe discharge disposition plan including the possibility of home care. Patient is very hesitant about intermediate placement at this time. Did have a brief discussion with him that it might not be safe for him to return home if he is not able to help care for himself and there is inadequate support in the home 24 hours a day. 5. IV fluids and monitor renal function response. 6. Will order stool for C difficile. 7. Monitor other labs as well. 8. Continue with right wrist splint and left knee splint. 9. Will keep Garcia catheter in for now, which was placed in the emergency department. Consider removing Garcia catheter as early as tomorrow morning. 10. Urinalysis demonstrates elevated urine specific gravity. No suggestion of active infection at this time. Urine culture pending. 11. Patient and are agreeable to above stated plans and recommendations at this time.
--- NOTE | 2022-02-24 20:02 | PC.NURSE ---
shift note: pt this shift came from the ED in late afternoon. Calm, cooperative, and talkative. States that a retired doctor friend was concerned about pt and insisted that he be seen for possible UTI and enlarged bladder. Pt came to unit with Jose from ED, draining dark ronna, clear urine. Pt c/o pain in L leg, immobilizer in place. Pedal pulses present. Vitals stable. Pt does not believe he can walk or stand and prefers a bed price for BM. Ordered dinner tray but only took about two bites. Resting comfortably in bed at this time.
[2022-02-24] MEDS: LACTATED RINGERS 1000 ML 500 ML IV (20:27)
[2022-02-24 21:10] LABS: Albumin* 3.6 g/dL (3.3-5.0)
[2022-02-24 21:13] LABS: Aspartate Amino Transferase* 55 U/L (12-35); Bilirubin Direct* 0.2 mg/dL (0.0-0.5); Bilirubin Total* 0.6 mg/dL (0.1-1.5); Total Protein* 7.2 g/dL (6.0-8.3)
[2022-02-24 21:14] LABS: Alanine Aminotransferase* 40 U/L (4-50); Alkaline Phosphatase* 247 U/L (40-150)
[2022-02-24] MEDS: 0.9 % SODIUM CHLORIDE 1000 ml 1,000 ML 125 ML IV (21:32)
[2022-02-24] MEDS: GABAPENTIN 300 MG CAPSULE PO (21:36)
[2022-02-24] MEDS: ENOXAPARIN 40 MG/0.4 ML INJ SUBCUT (21:37)
[2022-02-24] MEDS: ACETAMINOPHEN 500 MG TABLET 1000 MG PO (21:37)
[2022-02-24] MEDS: ROSUVASTATIN CALCIUM 10 MG TABLET 40 MG PO (21:46)
[2022-02-25 03:00] VITALS: BP 141/75; PULSE 76; RESP 18; TEMP 36.6; O2SAT 94
[2022-02-25] MEDS: 0.9 % SODIUM CHLORIDE 1000 ml 1,000 ML 125 ML IV (04:01)
--- NOTE | 2022-02-25 05:54 | PC.NURSE ---
SHIFT NOTE -: Pt is pleasant, alert, pt wakes up and forgets he is in the hospital and why, easily reoriented. Heavy two assist turn and reposition, appears in pain with repositioning but pt denies he is in pain and instead says he is just scared to move as he does not want to become painful. BROOKE patent and draining. Denies SOB, CP, and N/V. VSS on RA.
[2022-02-25 06:37] LABS: HCO3 VBG 26 mmol/L (21-28); Lactate* 0.8 mmol/L (0.5-1.9); PCO2 VBG 45 mmHG (40-50); PO2 VBG 61.5 mmHG (25-47)
[2022-02-25 06:50] LABS: Hematocrit 35.2 % (37.0-53.0); Hemoglobin* 11.4 gm/dL (13.5-17.5); Mean Corpuscular HGB Conc 32 gm/dL (32-36); Mean Corpuscular Hemoglobin 31 pg (26-34); Mean Corpuscular Volume 96 fL (80-100); Platelet Count* 258 K/uL (140-440); Red Blood Count 3.67 m/uL (4.30-5.90); White Blood Count* 11.43 K/uL (4.50-11.00)
[2022-02-25 06:52] LABS: Slide Review Reflex No
[2022-02-25 07:01] LABS: Albumin* 3.2 g/dL (3.3-5.0); Chloride* 101 mmol/L (96-114); Potassium* 4.4 mmol/L (3.6-5.1); Sodium* 136 mmol/L (135-149)
[2022-02-25 07:03] LABS: Hemoglobin A1C* 6.54 % (0-5.6)
[2022-02-25 07:04] LABS: Creatinine* 2.6 mg/dL (0.5-1.5); Est. Creatinine Clearance* 24.76; Estimated Glomerular Filt Rate 24 ml/min
[2022-02-25 07:05] LABS: Blood Urea Nitrogen* 87 mg/dL (7-30); Calcium* 10.4 mg/dL (8.4-10.6); Carbon Dioxide* 26 mmol/L (20-32); Glucose* 105 mg/dL (60-115); Magnesium* 1.8 mg/dL (1.5-2.6); Phosphorus* 5.5 mg/dL (2.5-4.5)
[2022-02-25 07:07] LABS: C Reactive Protein* 6.5 mg/dL (0.5-1.0)
[2022-02-25 07:14] LABS: NT Pro B Type NatriureticPept* 547 PG/mL (0-450)
[2022-02-25 07:17] LABS: Troponin I* 0.03 ng/mL (0.01-0.04)
[2022-02-25 08:27] VITALS: BP 133/65; PULSE 76; RESP 18; TEMP 36.4; O2SAT 95
[2022-02-25] MEDS: lisinopriL 20 MG TABLET 40 MG PO (09:11)
[2022-02-25] MEDS: TAMSULOSIN HCL 0.4 MG CAPSULE PO (09:11)
[2022-02-25] MEDS: ASPIRIN 81 MG TABLET EC PO (09:11)
[2022-02-25] MEDS: OXYCODONE 5 MG TABLET PO ×2 (09:11→20:35)
[2022-02-25] MEDS: OMEPRAZOLE 20 MG CAPSULE DR PO (09:12)
[2022-02-25] MEDS: ACETAMINOPHEN 500 MG TABLET 1000 MG PO ×3 (09:12→20:46)
[2022-02-25] MEDS: CHLORTHALIDONE 25 MG TABLET PO (09:12)
[2022-02-25] MEDS: METOPROLOL SUCCINATE (XL) 25 MG TAB PO (09:12)
[2022-02-25] MEDS: PSYLLIUM HUSK (WITH SUGAR) 12 GM PACKET PO (10:11)
[2022-02-25 11:21] VITALS: BP 130/62; PULSE 72; RESP 16; TEMP 36.4; O2SAT 93
--- NOTE | 2022-02-25 11:27 | P.IMPN_ITS ---
Progress Note: A&P Assessment and plan (1) Weakness generalized: Problem details: This appears to be primarily a chronic problem that has been getting worse over the past couple months. Clearly deconditioned. Activities clearly limited by multiple areas of musculoskeletal pain. Patient is currently too weak to live with his . Uncertain if he could even be managed there with additional help for his . Status: Acute (2) Morbid obesity: Status: Acute (3) Right wrist fracture: Problem details: mildly displaced left distal radial metaphysis and ulnar styloid fracture (DOI: 01/07/2022). Dr. Quintanilla reports no limitations on the use of his right wrist such as holding onto a walker Status: Acute (4) Osteoarthritis of knees, bilateral: Problem details: Left is greater than right. Left is severe, right is moderate. Not currently a candidate for surgery given his severe widespread disability Status: Chronic (5) Chronic kidney disease: Problem details: Baseline Cr 2.5, near baseline currently Status: Acute (6) Loose stools: Problem details: Patient has loose stools and constipation. Loose stools are difficult to manage given his immobility. Likely combination of use of laxatives and opioids. Going to add in Metamucil and monitor. Depending on his oxycodone use may need more laxative Status: Acute (7) Constipation: Problem details: Constipation and diarrhea. As above Status: Acute (8) Nausea and vomiting: Problem details: Apparently occasionally will have an emesis. At this time not clear that he has a primary gastrointestinal problem. Continue to monitor. Assessed p.o. intake. Status: Acute (9) Diabetes: Problem details: Fairly well controlled. Continue to monitor Status: Acute (10) Dehydration: Problem details: Stop IV fluids and monitor p.o. intake Status: Acute (11) Spinal stenosis of lumbosacral region: Problem details: CT abd/pelvis 01/07/22: Calcified disc osteophyte complex at L5-S1 with moderate spinal canal stenosis. Status: Acute (12) Discharge planning issues: Problem details: Patient is adamant that he does not want to return to previous [facility]. After some conversation he is open to an alternative usp placement. Will consult secondary social studies teacher for this. His has a relative coming to visit and help for a week. I think this would not be adequate plan for him to return home with his . He appears to need long-term therapy to get to the point he can stand and walk with a walker which is what he is going to require if he is going to live with his independently. Status: Acute Plan Continue in hospital for monitoring of chronic medical problems, monitoring for acute problems and developing a safe discharge plan Time Spent With Patient Total time spent: Total time spent today is 60 minutes, 40 minutes in coordination of care discussing with patient and other providers discharge planning and rehabilitation. Subjective Date Seen: 02/25/22 Interval history: 81-year-old male seen in followup of hospital admission for inability to care fo r himself. History is obtained from the patient and the medical record. He was hospitalized here in December after a fall at home with right wrist fracture. He was then transferred to [facility] for rehab due to inability to care for himself. That did not go well for him. He reported being miserable there. Physical therapy in the [facility]p did not go well for him. He discharged himself against medical advice about 10 days ago by his report. He has been at home with his . He has been in bed since he left [facility]. He cannot even sit up in bed or stand. His is unable to get him on a bedpan. He is incontinent in his diaper and she is cleaning him up. This is been quite difficult for her. He occasionally has diarrhea making this problem worse. He does not know why he has such generalized musculoskeletal weakness. He does have significant musculoskeletal pain in his back and in his knees. He has been considered for knee surgery but is currently not a candidate for knee surgery given his severe disabilities. He has not had cold, cough, shortness of breath, fever, chest pain, abdominal pain, nausea, vomiting. He does report that he has occasionally has hard stools and occasionally has loose stools. He has not had bloody stools. He is not having urinary symptoms. He is not having any new focal weakness. Generalized weakness in his legs more than his arms. Nursing staff note requiring assist of 2-3 staff to transfer bed to chair Exam Narrative: Exam Narrative: He is alert and appears in no distress. Quite talkative. Head is without evidence of trauma. Eyes are normal. Pupils are equal round reactive to light. Oropharynx is normal. No facial asymmetry. Neck is supple without mass or adenopathy. Respirations are clear to auscultation. Cardiovascular: S1, S2, regular rate and rhythm. Abdomen is soft without tenderness or mass. He has 5- /5 strength in his upper extremities bilaterally: Shoulder flexion-extension, elbow flexion-extension, wrist flexion extension, maple products maker strength, finger extension. Lower extremities are very weak. He is barely able to lift either foot off the bed with the left leg being weaker than the right. He has 4/5 strength in his right knee with flexion and extension and 4-/5 in his left knee. 5- over 5 ankle plantar flexion and dorsiflexion. Patient had inconsistent report of pain and inconsistent effort with exam. Const: Vital Signs, click to edit/add: Vital Signs - 24 hr 02/24/22 12:49 02/24/22 13:01 02/24/22 13:31 Temperature Pulse Rate 76 Pulse Rate [Left B rachial] Respiratory Rate Blood Pressure 132/59 L 103/58 L Blood Pressure [Le ft Arm] Pulse Oximetry 92 Oxygen Delivery Me thod 02/24/22 13:41 02/24/22 13:45 02/24/22 14:01 Temperature Pulse Rate 80 85 Pulse Rate [Left B rachial] Respiratory Rate Blood Pressure 123/63 Blood Pressure [Le ft Arm] Pulse Oximetry 94 91 Oxygen Delivery Me thod 02/24/22 14:31 02/24/22 14:33 02/24/22 14:45 Temperature Pulse Rate 82 84 Pulse Rate [Left B rachial] Respiratory Rate Blood Pressure 128/68 Blood Pressure [Le ft Arm] Pulse Oximetry 95 97 Oxygen Delivery Me thod 02/24/22 15:00 02/24/22 15:01 02/24/22 15:15 Temperature Pulse Rate 80 81 81 Pulse Rate [Left B rachial] Respiratory Rate Blood Pressure 138/68 Blood Pressure [Le ft Arm] Pulse Oximetry 97 91 93 Oxygen Delivery Me thod 02/24/22 15:30 02/24/22 15:31 02/24/22 15:32 Temperature Pulse Rate 80 81 80 Pulse Rate [Left B rachial] Respiratory Rate Blood Pressure 135/65 Blood Pressure [Le ft Arm] Pulse Oximetry 96 95 96 Oxygen Delivery Me thod 02/24/22 15:45 02/24/22 16:01 02/24/22 16:31 Temperature Pulse Rate 80 Pulse Rate [Left B rachial] Respiratory Rate Blood Pressure 135/63 138/60 Blood Pressure [Le ft Arm] Pulse Oximetry 96 Oxygen Delivery Me thod 02/24/22 17:01 02/24/22 17:31 02/24/22 19:34 Temperature 96.9 F L 98 F Pulse Rate Pulse Rate [Left B rachial] 79 Respiratory Rate 18 Blood Pressure 136/71 132/63 Blood Pressure [Le ft Arm] 132/58 L Pulse Oximetry 97 95 Oxygen Delivery Me thod Room Air 02/24/22 21:37 02/24/22 23:00 02/25/22 03:00 Temperature 98 F 97.9 F 98 F Pulse Rate Pulse Rate [Left B rachial] 74 76 Respiratory Rate 20 18 Blood Pressure Blood Pressure [Le ft Arm] 140/58 H 141/75 H Pulse Oximetry 93 94 Oxygen Delivery Me thod Room Air Room Air 02/25/22 08:27 Temperature 97.6 F Pulse Rate Pulse Rate [Left B rachial] 76 Respiratory Rate 18 Blood Pressure Blood Pressure [Le ft Arm] 133/65 Pulse Oximetry 95 Oxygen Delivery Me thod Room Air Documenting provider has reviewed patient's vital signs: yes Labs Labs: Laboratory Results - last 24 hr 02/24/22 02/24/22 02/24/22 11:48 11:48 13:45 WBC 13.35 H RBC 4.27 L Hgb 13.2 L Hct 40.2 MCV 94 MCH 31 MCHC 33 RDW Coeff of Sage 12.5 Plt Count 293 Neut % (Auto) 78.1 H Lymph % (Auto) 10.1 L [place] % (Auto) 8.3 Eos % (Auto) 2.5 Baso % (Auto) 0.6 Neut # (Auto) 10.40 H Lymph # (Auto) 1.30 [place] # (Auto) 1.10 H Eos # (Auto) 0.30 Baso # (Auto) 0.10 Abs Immat Gran (auto) 0.10 Imm/Tot Granulo (auto) 0.4 VBG pH VBG pCO2 VBG pO2 VBG HCO3 Sodium 135 Potassium 4.6 Chloride 96 Carbon Dioxide 26 BUN 90 H Creatinine 3.1 H Estimated Creat Clear 20.76 Estimated GFR 19 Glucose 90 Hemoglobin A1c Lactate Calcium 11.0 H Phosphorus Magnesium Total Bilirubin 0.6 Direct Bilirubin 0.2 AST 55 H ALT 40 Alkaline Phosphatase 247 H Troponin I C-Reactive Protein NT-Pro-B Natriuret Pep Total Protein 7.2 Albumin 3.6 TSH Urine Color Yellow Urine Appearance Clear Urine pH 5.0 Ur Specific [place] >= 1.030 Urine Protein 2+ A Urine Glucose (UA) Negative Urine Ketones Negative Urine Blood Negative Urine Nitrite Negative Urine Bilirubin Negative Urine Urobilinogen 0.2 Ur Leukocyte Esterase Negative Urine RBC 0-2 Urine WBC 0-2 Ur Squamous Epith Cells Few Urine Bacteria None Coarse Granular Casts Moderate A SARS-CoV-2 (PCR) Influenza Type A (PCR) Influenza Type B (PCR) 02/24/22 02/25/22 02/25/22 14:37 06:30 06:30 WBC 11.43 H RBC 3.67 L Hgb 11.4 L Hct 35.2 L MCV 96 MCH 31 MCHC 32 RDW Coeff of Sgae Plt Count 258 Neut % (Auto) Lymph % (Auto) [place] % (Auto) Eos % (Auto) Baso % (Auto) Neut # (Auto) Lymph # (Auto) [place] # (Auto) Eos # (Auto) Baso # (Auto) Abs Immat Gran (auto) Imm/Tot Granulo (auto) VBG pH VBG pCO2 VBG pO2 VBG HCO3 Sodium 136 Potassium 4.4 Chloride 101 Carbon Dioxide 26 BUN 87 H Creatinine 2.6 H Estimated Creat Clear 24.76 Estimated GFR 24 Glucose 105 Hemoglobin A1c Lactate Calcium 10.4 Phosphorus 5.5 H Magnesium 1.8 Total Bilirubin Direct Bilirubin AST ALT Alkaline Phosphatase Troponin I 0.03 C-Reactive Protein 6.5 H NT-Pro-B Natriuret Pep 547 H Total Protein Albumin 3.2 L TSH Urine Color Urine Appearance Urine pH Ur Specific [place] Urine Protein Urine Glucose (UA) Urine Ketones Urine Blood Urine Nitrite Urine Bilirubin Urine Urobilinogen Ur Leukocyte Esterase Urine RBC Urine WBC Ur Squamous Epith Cells Urine Bacteria Coarse Granular Casts SARS-CoV-2 (PCR) Negative SARS-CoV-2 Influenza Type A (PCR) Negative PCR FLU A Influenza Type B (PCR) Negative PCR FLU B 02/25/22 02/25/22 02/25/22 06:30 06:30 06:30 WBC RBC Hgb Hct MCV MCH MCHC RDW Coeff of Sage Plt Count Neut % (Auto) Lymph % (Auto) [place] % (Auto) Eos % (Auto) Baso % (Auto) Neut # (Auto) Lymph # (Auto) [place] # (Auto) Eos # (Auto) Baso # (Auto) Abs Immat Gran (auto) Imm/Tot Granulo (auto) VBG pH 7.370 VBG pCO2 45 VBG pO2 61.5 H VBG HCO3 26 Sodium Potassium Chloride Carbon Dioxide BUN Creatinine Estimated Creat Clear Estimated GFR Glucose Hemoglobin A1c 6.54 H Lactate 0.8 Calcium Phosphorus Magnesium Total Bilirubin Direct Bilirubin AST ALT Alkaline Phosphatase Troponin I C-Reactive Protein NT-Pro-B Natriuret Pep Total Protein Albumin TSH 1.810 Urine Color Urine Appearance Urine pH Ur Specific [place] Urine Protein Urine Glucose (UA) Urine Ketones Urine Blood Urine Nitrite Urine Bilirubin Urine Urobilinogen Ur Leukocyte Esterase Urine RBC Urine WBC Ur Squamous Epith Cells Urine Bacteria Coarse Granular Casts SARS-CoV-2 (PCR) Influenza Type A (PCR) Influenza Type B (PCR)
[2022-02-25] MEDS: CALCIUM ACETATE 667 MG CAPSULE PO ×2 (12:07→20:33)
--- NOTE | 2022-02-25 12:28 | PC.SOCIAL ---
Discharge planning: Met with pt regarding MD recommendation for [facility] placement at discharge for short term rehab. Pt states he will not go to [facility] facility where he has had a negative experience in the past, but is willing to go to another facility for short term rehab. Pt is requesting placement in [place] as his does limited driving outside of town and would have difficulty visiting him in another community. [facility] is patients first choice for placement. Called [facility] and faxed information for evaluation for admit. Social work to follow up as needed.
--- NOTE | 2022-02-25 14:06 | PC.NURSE ---
Shift Summary: Patient pleasant and cooperative. Staff attempted to sit up at side of bed this morning with little success, patient has difficulty bending at the knee with his left leg. Able to make slight movements in bed per self, two staff assist for repositioning. Vitals stable and WNL. Garcia catheter pulled @1000, has yet to void. Refusing meals stating his stomach is still upset and has a fear of loose BM. Has had small amounts of juice and soda this morning and at noon. Blood glucose levels not requiring sliding scale insulin, scheduled novolog held due to patients poor appetite. Moved from room 260 to 245 so staff can use ceiling lift for transfers.
[2022-02-25 15:45] VITALS: BP 111/52; PULSE 63; RESP 18; TEMP 36.5; O2SAT 95
--- NOTE | 2022-02-25 16:42 | PC.SOCIAL ---
Discharge plan: Received call from [facility] stating they can accept pt for admit at 2:00 tomorrow 02/26/22 to a private bedroom with a shared bath for short term rehab. [facility] confirms this will be covered by pt's insurance. [facility] is requesting a negative C-diff test prior to discharge as pt will have a shared bathroom. [facility] nurse will call hospital nurse today for a nurse to nurse report. knockout worker to follow up as needed.
--- NOTE | 2022-02-25 18:43 | PC.NURSE ---
Shift [id number]- Patient remains in bed- declines offer to get up to chair with ceiling lift. He asks for lights off and door to be shut so he can rest. He is turned and repo'd with pillows for offloading. He is encouraged to increase fluid intake this afternoon, which he states agreement. He is bladder scanned this afternoon for 93ccs due to not urinating since adalid mcgraw/MD low updated- no new orders.
[2022-02-25 19:00] VITALS: BP 112/62; PULSE 68; RESP 20; TEMP 36.3; O2SAT 93
[2022-02-25] MEDS: ROSUVASTATIN CALCIUM 10 MG TABLET 40 MG PO (20:34)
[2022-02-25] MEDS: GABAPENTIN 300 MG CAPSULE PO (20:34)
[2022-02-25] MEDS: ENOXAPARIN 40 MG/0.4 ML INJ SUBCUT (20:34)
--- NOTE | 2022-02-25 22:51 | PC.NURSE ---
shift note: pt t&r for comfort. pt requested prn oxycodone at HS. vss stable. IV intact lt AC
[2022-02-25 23:00] VITALS: BP 126/65; PULSE 73; RESP 20; TEMP 36.6; O2SAT 92
[2022-02-26 03:00] VITALS: BP 129/61; PULSE 77; RESP 20; TEMP 36.4; O2SAT 92
--- NOTE | 2022-02-26 06:52 | PC.NURSE ---
23-07: pleasant and cooperative. Calls appropriately. Turn & Repo.?Pt attempted to use urinal indep and had soiled the linens, required linen change and new gown. Pt hesitant about position changes, needs encouragement. VSS. BM, pt requested bedpan, stool sample sent to Lab.
[2022-02-26 07:00] VITALS: BP 139/75; PULSE 78; RESP 16; RESP 18; TEMP 36.8; O2SAT 95
[2022-02-26] MEDS: CALCIUM ACETATE 667 MG CAPSULE PO (08:12)
[2022-02-26] MEDS: ASPIRIN 81 MG TABLET EC PO (08:31)
[2022-02-26] MEDS: ACETAMINOPHEN 500 MG TABLET 1000 MG PO (08:31)
[2022-02-26] MEDS: CHLORTHALIDONE 25 MG TABLET PO (08:31)
[2022-02-26] MEDS: lisinopriL 20 MG TABLET 40 MG PO (08:31)
[2022-02-26] MEDS: OMEPRAZOLE 20 MG CAPSULE DR PO (08:31)
[2022-02-26] MEDS: TAMSULOSIN HCL 0.4 MG CAPSULE PO (08:31)
[2022-02-26] MEDS: METOPROLOL SUCCINATE (XL) 25 MG TAB PO (08:31)
[2022-02-26] MEDS: PSYLLIUM HUSK (WITH SUGAR) 12 GM PACKET PO (08:32)
[2022-02-26 08:44] LABS: C.Difficile Negative (Negative); CDIFFEPI 027 PRESUMPTIVE NEGATIVE (Negative)
[2022-02-26 09:33] VITALS: BP 139/75; PULSE 78; RESP 18; TEMP 36.8
--- NOTE | 2022-02-26 09:58 | PC.SOCIAL ---
Discharge plan. Pt has been accepted for admit today to [facility] for short term rehab. Pt and are pleased and agree with this plan. is aware of transportation being arranged with non-emergency ambulance and the expectation that this will be covered by his insurance. is aware of private pay fee if not covered. Pt cab arrive at [facility] any time before 2:00 today.
--- NOTE | 2022-02-26 11:10 | PC.NURSE ---
N2N CALLED TO [facility] AT [facility] AT 1110 AT [phone]. STOVE BOTTOM WORKER VERBALIZED EMS TRANSPORT WILL BE SET UP FOR 1400 ARRIVAL AT [facility] AND IF THIS TIME CHANGES THAT WE WILL GIVE THEM A CALL WITH UPDATE. [facility] VERBALIZED UNDERSTANDING.
--- NOTE | 2022-02-26 11:30 | PC.NURSE ---
Patient refused oxycodone for pain. It makes me sleepy and i want to be awake when i leave here. Patient also refused hair wash and lunch. I had a big breakfast and we tried my hair earlier and it was too painful.
[2022-02-26 11:31] VITALS: BP 144/69; PULSE 73; RESP 16; TEMP 36.4; O2SAT 96
[2022-02-26 12:09] VITALS: BP 144/69; PULSE 73; RESP 16; TEMP 36.4
--- NOTE | 2022-02-26 12:12 | PC.NURSE ---
Patient discharged to [facility] unit via EMS. All Leg brace, phone and license registration examiner sent with patient. Packet of info sent with EMS. Called [facility] at [facility] to let them know he was on his way there.
--- NOTE | 2022-02-26 14:42 | PM.DS1 ---
DS: Providers Provider Date Seen: 02/26/22 Date of admission: 02/24/22 16:53 Primary care physician: Bridger Danielson MD Admitting Clinician: Janak Reyes MD Consults: 02/24/22 19:14 Consult to Physical Therapy [CONS] Routine Comment: Reason(s) for PT Consult:: Evaluate and Treat Any Restrictions?:: No Restrictions Comment: Home care? Consult to [employer] [CONS] Routine Comment: Reason for Consult:: Home Health Assessment 02/24/22 19:16 Consult to Occupational Therapy [CONS] Routine Comment: Reason(s) for OT Consult:: Evaluate and Treat Any Restrictions?:: No Restrictions Comment: Home care? 02/25/22 08:59 Consult to Physician [CONS] Routine Comment: Consulting Provider: Guero Quintanilla Has provider been notified: No Attending Physician on discharge: Renetta Loya MD [facility] Date of Discharge: 02/26/22 DS: Diagnosis Discharge Diagnosis (1) Chronic kidney disease: Status: Acute Problem details: Baseline Cr 2.5, near baseline currently (2) Weakness generalized: Status: Acute Problem details: This appears to be primarily a chronic problem that has been getting worse over the past couple months. Clearly deconditioned. Activities clearly limited by multiple areas of musculoskeletal pain. Patient is currently too weak to live with his . retirement placement ultimately was is disposition (3) Diabetes: Status: Acute Problem details: Fairly well controlled. Continue to monitor (4) Spinal stenosis of lumbosacral region: Status: Acute Problem details: CT abd/pelvis 01/07/22: Calcified disc osteophyte complex at L5-S1 with moderate spinal canal stenosis. (5) Morbid obesity: Status: Acute (6) Right wrist fracture: Status: Acute Problem details: mildly displaced left distal radial metaphysis and ulnar styloid fracture (DOI: 01/07/2022). Dr. Quintanilla reports no limitations on the use of his right wrist such as holding onto a walker DS: Summary Hospital Course Hospital Course: HOSPITALIST DISCHARGE SUMMARY ATTENDING PHYSICIAN: Renetta Loya MD FINAL DIAGNOSIS: Generalized weakness Adult failure to thrive Right wrist fracture Generalized osteoarthritis Diabetes HOSPITAL FOLLOWUP ISSUES: None REFERRALS WHILE ADMITTED: PT, OT, social work REFERRALS AFTER DISCHARGE: retirement BRIEF HOSPITAL COURSE: Dontrell was admitted for care home care. The patient simply could not manage at home nor could his assist him enough to keep him safe. He has multiple medical problems that has been progressive over the last year. Most notably he has a recent right wrist fracture, worsening osteoarthritis in multiple joints, morbid obesity, mild cognitive decline, diabetes. The hospital medicine team did not feel like there was any acute issues we needed to treat/manage. We were able to find placement for him at [facility]. He was amenable to this placement. SUBSTANTIVE NOTATIONS ON IMAGING, LAB, MICROBIOLOGY/PATHOLOGY STUDIES: DISCHARGE MEDICATIONS: See Reconciled list - SIGNIFICANT CHANGES: REVIEW OF SYSTEMS No new chest pain or dyspnea Pain controlled No voiding difficulties Tolerating diet challenge PHYSICAL EXAM: CONSTITUTIONAL: Generalized weak, unable to ambulate without Pierce lift and or assist of 2-3. VITAL SIGNS: see record. HEENT: Normocephalic, atraumatic. PERRL, EOMI, conjunctivae pink, no scleral icterus. Ears and nose externally normal. Pharynx normal. NECK: No JVD. No carotid bruit, no thyromegaly, no adenopathy. CHEST: Clear to auscultation bilaterally. HEART: S1 and S2 normal. Edema ABDOMEN: Soft, nontender. Normal bowel sounds. MUSCULOSKELETAL: No gross joint deformity or swelling. NEURO: Cranial nerves intact. Grossly intact. No asymmetric findings. SKIN: No rashes, petechiae, concerning changes PSYCHIATRIC: Mood euthymic. DISPOSITION: [facility] Time spent on discharge 37 minutes. Status at Discharge Functional status at discharge: bed bound Overall status at discharge: patient is not back to baseline Time Spent with Patient Time attestation: Total time spent providing and/or coordinating discharge services: Time spent: Greater than 30 minutes Exam Const: Vital Signs, click to edit/add: Vital Signs - 24 hr 02/25/22 15:45 02/25/22 19:00 02/25/22 23:00 Temperature 97.7 F 97.4 F L Pulse Rate Pulse Rate [Left B rachial] 63 68 73 Pulse Rate [Left P ulse Oximeter] Respiratory Rate 18 20 20 Blood Pressure Blood Pressure [Le ft Arm] 111/52 L 112/62 Pulse Oximetry 95 93 Oxygen Delivery Me thod Room Air Room Air 02/25/22 23:00 02/26/22 03:00 02/26/22 07:00 Temperature 97.8 F 97.6 F Pulse Rate Pulse Rate [Left B rachial] Pulse Rate [Left P ulse Oximeter] 73 77 78 Respiratory Rate 20 20 16 Blood Pressure Blood Pressure [Le ft Arm] 126/65 129/61 Pulse Oximetry 92 92 Oxygen Delivery Me thod Room Air Room Air 02/26/22 07:00 02/26/22 09:33 02/26/22 11:31 Temperature 98.3 F 98.3 F 97.5 F L Pulse Rate 78 Pulse Rate [Left B rachial] Pulse Rate [Left P ulse Oximeter] 78 73 Respiratory Rate 18 18 16 Blood Pressure 139/75 Blood Pressure [Le ft Arm] 139/75 144/69 H Pulse Oximetry 95 96 Oxygen Delivery Me thod Room Air Room Air 02/26/22 12:09 Temperature 97.5 F L Pulse Rate 73 Pulse Rate [Left B rachial] Pulse Rate [Left P ulse Oximeter] Respiratory Rate 16 Blood Pressure 144/69 H Blood Pressure [Le ft Arm] Pulse Oximetry Oxygen Delivery Me thod DS: Data Data Completed and Pending Labs on day of discharge: Labs from last 24 hours 02/26/22 06:30 Stl C.difficile Tox PCR Negative St C. diff Tox Epid 027 PRESUMPTIVE NEGATIVE Discharge Plan Discharge Disposition: [facility] Date of Admission: 02/24/22 16:53 Attending Provider on Discharge: Renetta Loya Consulting Providers: Guero Quintanilla Primary Care Provider: Bridger Danielson Condition: Unchanged Anticipated Discharge Date/Time: 02/26/22 08:53 Discharge Medications: New calcium acetate(phosphat bind) 667 mg Capsule 667 mg PO TIDWM Qty: 90 0RF Continued rosuvastatin 40 mg tablet 40 mg PO HS gabapentin 300 mg capsule 300 mg PO HS chlorthalidone 25 mg tablet 25 mg PO DAILY tamsulosin 0.4 mg capsule 0.4 mg PO DAILY metoprolol succinate 25 mg tablet extended release 24 hr 25 mg PO DAILY aspirin 81 mg tablet,delayed release (DR/EC) 81 mg PO DAILY insulin aspart U-100 [Novolog U-100 Insulin aspart] 100 unit/mL solution 20 unit subcut TIDWM lisinopril 20 mg tablet 40 mg PO QDAY omeprazole 20 mg capsule,delayed release(DR/EC) 20 mg PO QDAY polyethylene glycol 3350 [Miralax] 17 gram/dose powder 4 g PO QDAY oxycodone 5 mg capsule 2.5 - 5 mg PO Q4H PRN acetaminophen 500 mg tablet 1,000 mg PO TID insulin glargine [Lantus U-100 Insulin] 100 unit/mL solution 45 unit SUBCUT BID diclofenac sodium 1 % gel 2 g TOPICAL QID PRN Discontinued cholecalciferol (vitamin D3) [Vitamin D3] 25 mcg (1,000 unit) capsule 50 mcg PO DAILY Discharge Orders: Discharge Order (Routine); Ordered 02/26/22 Ordered By: Renetta Loya Additional Instructions: Additional Orders: Code Status: DNR/DNI Physical Therapy: EVAL AND TREAT Occupational Therapy: EVAL AND TREAT Speech Therapy: EVAL AND TREAT Instructions for feeds (do they need to be thickened?): NOT A FEEDER, REGULAR DIET Activity limitations or suggestions: SIGNIFICANT GENERALIZED WEAKNESS, PLACEMENT HAS BEEN A PIERCE LIFT HERE Oxygen order: N/A - ROOM AIR RIGHT WRIST FRACTURE LEFT KNEE HAS IMMOBLIZER BUT THIS IS NOT REQUIRED; HX OF OSTEOARTHRITIS IN BILATERAL KNEES, SEVERE ON THE LEFT - CAN DISCONTINUE IF IT IS NOT HELPING OR STABLIZING WHEN HE DOES START WALKING WRITE WRIST FRACTURE (01/07/22) - SPLINT AGAIN IS FOR COMFORT, NO RESTRICTIONS ON USE WITH THAT WRIST. Activity Level: Activity as Tolerated Discharge Diet: Regular Follow Up Appointments: [facility] [Outside] Bridger Danielson MD [Primary Care Provider] -
== END 2022-02-26 12:00 ==
LOC: ED 16:37 → MEDSURG 16:54
PROVIDERS: Family Medicine; Admitting Provider Internal Medicine; Emergency Provider Emergency Medicine Emergency Medical Services; PCP Family Medicine; Visit Provider Internal Medicine
DX: R53.1 Weakness (principal); R62.7 Adult failure to thrive; Z74.1 Need for assistance with personal care; M48.07 Spinal stenosis, lumbosacral region; E66.01 Morbid (severe) obesity due to excess calories; Z68.36 Body mass index [BMI] 36.0-36.9, adult; R63.8 Other symptoms and signs concerning food and fluid intake; I12.9 Hypertensive chronic kidney disease with stage 1 through stage 4 chronic kidney disease, or unspecified chronic kidney disease; E11.22 Type 2 diabetes mellitus with diabetic chronic kidney disease; N18.9 Chronic kidney disease, unspecified; N17.9 Acute kidney failure, unspecified; S62.101A Fracture of unspecified carpal bone, right wrist, initial encounter for closed fracture; M15.9 Polyosteoarthritis, unspecified; Z79.4 Long term (current) use of insulin; Z79.82 Long term (current) use of aspirin; R11.2 Nausea with vomiting, unspecified; R19.5 Other fecal abnormalities; Z96.0 Presence of urogenital implants; E86.0 Dehydration; K59.00 Constipation, unspecified; R32 Unspecified urinary incontinence
CPT/HCPCS: 36415; 51702; 51798; 80048; 80076; 81001; 82040; 82803; 82962; 83036; 83605; 83735; 83880; 84100; 84443; 84484; 85025; 85027; 86140; 87493; 87631; 93005; 96361; 96372; 96374; 97163; 97165; 97530; 97535; 99285; A9270; G0378; G0379; J1650; J2405; J7030; J7120

== ENCOUNTER 2022-02-26 11:45 | Outpatient (CLI) | payer MEDICARE, SELFPAY | END 2022-02-26 11:46 | disposition home or self-care (01) | LOC: AMB 03-29 00:22 | PROVIDERS: PCP Family Medicine; Visit Provider Family Medicine | DX: R29.6 Repeated falls (principal) | CPT/HCPCS: A0425; A0428 ==